=== PATIENT | female | born 1950 | race Two or more races ===

== ENCOUNTER 2018-08-08 12:34 | Emergency (ER) | payer MEDICAID, OTHER ==
[~2018-08-08] VITALS: Ht 160 cm; Wt 59.0 kg
[2018-08-08 12:40] VITALS: BP 160/78
== END 2018-08-08 13:41 | disposition home or self-care (01) ==
LOC: ER 12:36
DX: B37.2 Candidiasis of skin and nail (principal); E11.9 Type 2 diabetes mellitus without complications; I10 Essential (primary) hypertension; Z88.0 Allergy status to penicillin

== ENCOUNTER 2019-01-09 10:05 | Emergency (ER) | payer MEDICARE, MEDICAID ==
[~2019-01-09] VITALS: Ht 157.5 cm; Wt 61.2 kg
[2019-01-09 10:21] VITALS: BP 135/58
[2019-01-09] MEDS ORDERED: IBUPROFEN 800 MG TAB PO ONE (12:15)
== END 2019-01-09 12:29 | disposition home or self-care (01) ==
LOC: ER 10:05
DX: G44.209 Tension-type headache, unspecified, not intractable (principal); E11.9 Type 2 diabetes mellitus without complications; I10 Essential (primary) hypertension
CPT/HCPCS: 70450

== ENCOUNTER 2022-09-27 22:55 | Emergency (ER) | payer MEDICARE, MEDICAID ==
[~2022-09-27] VITALS: Ht 152.4 cm; Wt 61.8 kg
[2022-09-27] MEDS ORDERED: ALPRAZolam 0.5 MG TAB PO ONE (23:45)
[2022-09-27 23:55] LABS: Urine Bacteria FEW /hpf (None Seen); Urine Blood Negative /uL (Negative); Urine Mucus FEW (None Seen); Urine WBC 7 /hpf (0 - 5)
[2022-09-28 00:04] LABS: Basophils # (auto) 0.2 10 ^3/uL (0-0.2); Basophils % (auto) 1.9 % (0.0-2.0); Eosinophils # (auto) 0.3 10 ^3/uL (0-0.8); Eosinophils % (auto) 2.2 % (0.0-7.0); Hematocrit 46.3 % (36.0-46.0); Hemoglobin 15.9 g/dL (12.2-16.2); Lymphocytes # (auto) 3.7 10 ^3/uL (0.4-5.4); Lymphocytes % (auto) 30.8 % (10.0-50.0); Mean Corpuscular Hemoglobin 30.8 pg (28.0-32.0); Mean Corpuscular Hgb Conc. 34.4 g/dL (32.0-36.0); Mean Corpuscular Volume 89.7 fL (80.0-100.0); Monocytes # (auto) 0.7 10 ^3/uL (0-1.3); Monocytes % (auto) 5.9 % (0.0-12.0); Neutrophils % (auto) 59.2 % (37.0-80.0); Nucleated Red Blood Cells % 0.1 %; Red Blood Cells 5.16 10^6/uL (4.0-5.20); Red Cell Distribution Width 14.1 % (11.8-14.3); White Blood Cell 11.9 10^3/uL (4.4-10.8)
[2022-09-28 00:21] LABS: Albumin 3.9 g/dL (3.4-5.0); Potassium 3.8 mmol/L (3.5-5.1)
[2022-09-28 00:25] LABS: Bilirubin, Total 0.3 mg/dL (0.2-1.0); Total Protein 8.8 g/dL (6.4-8.2)
[2022-09-28] MEDS ORDERED: CLON0.1T PO (01:18)
[2022-09-28] MEDS ORDERED: BACDST PO (01:18)
[2022-09-28 01:42] VITALS: BP 145/62
== END 2022-09-28 01:51 | disposition home or self-care (01) ==
LOC: ER 22:55
DX: I10 Essential (primary) hypertension (principal); N39.0 Urinary tract infection, site not specified; E11.9 Type 2 diabetes mellitus without complications; Z88.0 Allergy status to penicillin
CPT/HCPCS: 36415; 80053; 81001; 85025

== ENCOUNTER 2023-01-26 14:49 | Emergency (ER) | payer OTHER, MEDICAID ==
[~2023-01-26] VITALS: Ht 157.5 cm; Wt 61.3 kg
[~2023-01-26 14:49] MED LIST: BACDST PO; CLON0.1T PO
[2023-01-26 15:43] LABS: Basophils # (auto) 0.1 10 ^3/uL (0-0.2); Basophils % (auto) 0.6 % (0.0-2.0); Eosinophils # (auto) 0.3 10 ^3/uL (0-0.8); Eosinophils % (auto) 2.6 % (0.0-7.0); Hematocrit 44.6 % (36.0-46.0); Hemoglobin 15.1 g/dL (12.2-16.2); Lymphocytes # (auto) 3.5 10 ^3/uL (0.4-5.4); Lymphocytes % (auto) 26.6 % (10.0-50.0); Mean Corpuscular Hemoglobin 30.2 pg (28.0-32.0); Mean Corpuscular Hgb Conc. 33.8 g/dL (32.0-36.0); Mean Corpuscular Volume 89.3 fL (80.0-100.0); Monocytes # (auto) 0.7 10 ^3/uL (0-1.3); Monocytes % (auto) 5.6 % (0.0-12.0); Neutrophils # (auto) 8.6 10 ^3/uL (1.6-8.6); Neutrophils % (auto) 64.6 % (37.0-80.0); Nucleated Red Blood Cells % 0.1 %; Red Blood Cells 4.99 10^6/uL (4.0-5.20); Red Cell Distribution Width 14.5 % (11.8-14.3); White Blood Cell 13.2 10^3/uL (4.4-10.8)
[2023-01-26 16:14] LABS: Alanine Aminotransferase 79 U/L (7-40); Albumin 4.3 g/dL (3.2-4.8); Alkaline Phosphatase 90 U/L (46-116); Aspartate Aminotransferase 41 U/L (13-40); BUN/Creatinine Ratio 16.9 (10.0-20.0); Bilirubin, Total 0.2 mg/dL (0.2-1.0); Blood Urea Nitrogen 13 mg/dL (9-23); Calcium 8.9 mg/dL (8.5-10.1); Chloride 104 mmol/L (98-107); Glucose 289 mg/dL (74-106); Potassium 4.6 mmol/L (3.5-5.1); Sodium 136 mmol/L (136-145); Total Protein 7.3 g/dL (5.7-8.2)
[2023-01-26] MEDS ORDERED: KETOROLAC TROMETH 30 MG/ML 1ML VIAL IM ONE (18:45)
[2023-01-26] MEDS ORDERED: METOCLOPRAMIDE HCL 10 MG TAB PO ONE (18:45)
[2023-01-26] MEDS ORDERED: HYDROcodone-ACET 5/325MG TAB PO ONE (18:45)
[2023-01-26] MEDS ORDERED: CYCL-838 PO ×3 (18:55→19:49)
[2023-01-26] MEDS ORDERED: ACET-1304 PO ×3 (18:55→19:49)
[2023-01-26] MEDS ORDERED: METO-281 PO (18:55)
[2023-01-26 19:34] VITALS: BP 136/64; PULSE 81; RESP 18; TEMP 98.5; O2SAT 93
[2023-01-26] MEDS ORDERED: CLON0.1T PO (19:49)
== END 2023-01-26 19:42 | disposition home or self-care (01) ==
LOC: ER 14:49
DX: R51.9 Headache, unspecified (principal); M54.2 Cervicalgia; I10 Essential (primary) hypertension; E11.9 Type 2 diabetes mellitus without complications; Z79.1 Long term (current) use of non-steroidal anti-inflammatories (NSAID); Z79.899 Other long term (current) drug therapy; Z88.0 Allergy status to penicillin
CPT/HCPCS: 36415; 70450; 80053; 85025; 93005; 96372; 99285; J1885; J8597

== ENCOUNTER 2024-09-06 15:05 | Emergency (ER) | payer MEDICAID, MEDICARE, OTHER ==
[~2024-09-06] VITALS: Ht 157.5 cm; Wt 59.9 kg
[~2024-09-06 15:05] MED LIST changes: +ACET-1304 PO; +CYCL-838 PO; +METO-281 PO
[2024-09-06 16:32] VITALS: BP 139/89; PULSE 87; RESP 16; TEMP 98.2; O2SAT 96
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
[2024-09-06] MEDS ORDERED: ACET500T58 PO (17:43)
[2024-09-06] MEDS ORDERED: LIDO5DIS21 TOP (17:43)
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
== END 2024-09-06 17:48 | disposition home or self-care (01) ==
LOC: ER 15:08
DX: M79.18 Myalgia, other site (principal); E11.9 Type 2 diabetes mellitus without complications; I10 Essential (primary) hypertension; S16.1XXA Strain of muscle, fascia and tendon at neck level, initial encounter; M54.2 Cervicalgia; Z88.0 Allergy status to penicillin; V89.2XXA Person injured in unspecified motor-vehicle accident, traffic, initial encounter; Y93.89 Activity, other specified; Y92.410 Unspecified street and highway as the place of occurrence of the external cause; Y99.8 Other external cause status
CPT/HCPCS: 70450; 72125

== ENCOUNTER 2024-09-17 12:45 | Emergency (ER) | payer MEDICARE ==
[~2024-09-17] VITALS: Ht 157.5 cm; Wt 57.4 kg
[~2024-09-17 12:45] MED LIST changes: +ACET500T58 PO; +LIDO5DIS21 TOP
--- NOTE | 2024-09-17 13:03 | ED.PDOC ---
History of present illness HPI Comments Past medical history: DM, HTN Past surgical history: 2 C-sections HPI: Poor Historian. 74-year-old female presents to emergency room for three day history of blood sugar reading at home in the 500s. Patient has associated mild dizziness and nausea and occasional headaches. Patient states compliance with her insulin medications. Blood sugar reads in the 500s here in triage. REVIEW OF SYSTEMS: CONSTITUTIONAL: Denies acute: fever, diaphoresis, chills, HEAD: Denies acute: headache, photophobia Eyes: Denies acute: Double vision, vision loss, eye pain, eye discharge. EARS: Denies acute: tinnitus, hearing loss, ear discharge, ear pain, THROAT: Denies acute: sore throat, swelling, difficulty swallowing , pain with swallowing, change in voice. NECK: Denies acute: neck pain, neck swelling, stiff neck. HEART: Denies acute : chest pain, palpitations, LUNGS: Denies acute: SOB, wheezing, cough, hemoptysis ABDOMEN: Denies acute: abdominal pain, Vomiting, diarrhea, melena , hematemesis, hematochezia SKIN: Denies acute: rash, redness, lesions, itchiness. EXTREMITIES: Denies acute: calf pain, numbness, tingling, weakness, denies pain in extremity. Denies acute: Low back pain. Neuro: Denies acute: focal neurological deficit, motor or sensory focal neurological deficit, tremors, seizure like activity, confusion, change in mental status, loss of bowel or bladder function, cauda equina like symptoms. : Denies acute: dysuria, hematuria, flank pain, increase in urinary frequency. PSYCH: Denies acute: hallucination, suicidal ideation, homicidal ideation. FEMALE: Denies acute: abnormal vaginal bleeding, foul odor, unusual discharge. PHYSICAL EXAM: General: ----minimal----acute distress, awake and alert. Head: normocephalic, atraumatic. Neck: supple, trachea is midline, no swelling. Throat: Normal phonation. Eyes:, no erythema, no purulent discharge, no proptosis, no icterus. Heart: regular rate, regular rhythm, no significant murmur appreciated. Lungs: no apparent respiratory distress, Able to speak in full sentences. No wheezing, no rhonchi, no crackles. No stridors Clear to auscultation bilaterally. Abdomen: non tender to palpation, non distended, soft, no guarding, no rebound, + bowel sounds. Neuro: Awake, Alert, oriented to name, self, situation, follows commands GCS=15. Speech is normal. Skin: no petechia, no purpura, no cyanosis, non-pale, not jaundice. Lower extremities: --no - Pitting edema no deformity, no focal swelling, no calf TTP. Makes eye contact. moves all four extremities. Face: no apparent facial droop. Ambulating in the ED independently. ED COURSE: Chief Complaint: Hyperglycemia Time Seen by MD: 13:00 Primary Care Provider: UNKNOWN History of present illness: Nurses Notes, Medications, Allergies Allergies: Coded Allergies: Penicillins (Verified Allergy, Severe, 08/10/18) Home Meds Active Scripts Nitrofurantoin Monohydrate Mac (Macrobid) 100 Mg Cap, 100 MG PO BID for 7 Days, #14 CAP Prov:AMALIA OROPEZA DO 09/17/24 Acetaminophen (Acetaminophen) 500 Mg Tab, 500 MG PO Q6HP PRN for 10 Days, #40 TAB 0 Refills Prov:CYNDEE COLON NP 09/06/24 Lidocaine (LIDODERM 5% TOPICAL PATCH) 1 Patch Ph, 1 PATCH TOP DAILY for 30 Days, #30 PATCH 0 Refills Prov:CYNDEE COLON NP 09/06/24 Acetaminophen (Tylenol Extra Strength) 500 Mg Tab, 1000 MG PO TID, #20 TAB Prov:XI AVERY MD 01/26/23 Cyclobenzaprine Hcl (CYCLOBENZAPRINE HCL) 7.5 Mg Tab, 7.5 MG PO TID, #14 TAB Prov:XI AVERY MD 01/26/23 Clonidine Hydrochloride (Clonidine Hcl) 0.1 Mg Tab, 1 TAB PO PRN, #20 TAB 0 Refills Prov:XI AVERY MD 01/26/23 Metoclopramide Hcl (Reglan) 10 Mg Tab, 10 MG PO TID, #14 TAB Prov:XI AVERY MD 01/26/23 Sulfamethoxazole W/Trimethopri (Bactrim Ds Tablet) 1 Tab Tb, 1 TAB PO BID for 7 Days, #14 TAB Prov:ELIE REDMAN PAC 09/28/22 Information Source: Patient Past Medical History PAST MEDICAL HISTORY: DM, HTN 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 Was a procedure done?: No Differential Diagnosis (DM) Differential Diagnosis: Dehydration, Diabetic Coma, DKA, Electrolyte Abnormality, Hyperglycemia, Hyperosmolar State, UTI X-Ray, Labs, Meds, VS Vital Signs Date Time Temp Pulse Resp B/P (MAP) Pulse Ox O2 Delivery O2 Flow Rate FiO2 09/17/24 18:35 85 19 98 Room Air* 0 21 09/17/24 18:34 98.0 83 20 144/75 (98) 95 98.0 09/17/24 13:53 79 18 95 Room Air 09/17/24 13:53 97.8 79 18 154/69 (97) 95 97.8 09/17/24 13:32 85 16 95 Room Air 09/17/24 13:32 98.3 85 16 161/82 (108) 95 98.3 09/17/24 12:58 98.7 88 16 148/73 (98) 93 98.7 Lab Test 09/17/24 15:01 09/17/24 14:32 09/17/24 14:02 09/17/24 14:01 Range/Units POC Glucose 386 H 496 *H 70-106 mg/dl Troponin I High Sensitivity 14 </=34 ng/L Blood Gas Specimen Type Arterial Blood Gas Sample Site Right radial Blood Gas Patient Temperature 37.0 Arterial Blood Date Drawn [id number] Arterial Blood pH 7.436 7.350-7.450 Arterial Blood Partial Pressure CO2 35.4 32.0-45.0 mmHg Arterial Blood Partial Pressure O2 73.2 L 83.0-108.0 mmHg Arterial Blood HCO3 23.3 21.0-28.0 mmol/L Arterial Blood Oxygen Saturation 95.2 94.0-98.0 % Arterial Blood Base Excess -0.3 -2.0-3.0 mmol/L Arterial Blood Oxyhemoglobin 94.2 94.0-98.0 % Arterial Blood Carboxyhemoglobin 0.6 0.5-1.5 % Arterial Blood Methemoglobin 0.5 0.0-1.5 % Aj Test Yes Blood Gas Total Hemoglobin 15.80 12.0-16.0 g/dL Blood Gas Modality Room air FiO2 % 21.0 Test 09/17/24 14:00 09/17/24 13:32 09/17/24 12:56 09/17/24 12:54 Range/Units POC Glucose 472 *H 530 *H 70-106 mg/dl White Blood Count 8.8 4.4-10.8 10^3/uL Red Blood Count 5.11 4.0-5.20 10^6/uL Hemoglobin 15.1 12.2-16.2 g/dL Hematocrit 45.3 36.0-46.0 % Mean Corpuscular Volume 88.6 80.0-100.0 fL Mean Corpuscular Hemoglobin 29.5 28.0-32.0 pg Mean Corpuscular Hemoglobin Concent 33.2 32.0-36.0 g/dL Red Cell Distribution Width 14.2 11.8-14.3 % Platelet Count 198 140-450 10^3/uL Mean Platelet Volume 8.5 6.9-10.8 fL Neutrophils (%) (Auto) 75.8 37.0-80.0 % Lymphocytes (%) (Auto) 16.5 10.0-50.0 % Monocytes (%) (Auto) 7.2 0.0-12.0 % Eosinophils (%) (Auto) 0.2 0.0-7.0 % Basophils (%) (Auto) 0.3 0.0-2.0 % Neutrophils # (Auto) 6.7 1.6-8.6 10 ^3/uL Lymphocytes # (Auto) 1.5 0.4-5.4 10 ^3/uL Monocytes # (Auto) 0.6 0-1.3 10 ^3/uL Eosinophils # (Auto) 0 0-0.8 10 ^3/uL Basophils # (Auto) 0 0-0.2 10 ^3/uL Nucleated Red Blood Cells 0.0 % Sodium Level 133 L 136-145 mmol/L Potassium Level 4.2 3.5-5.1 mmol/L Chloride Level 100 98-107 mmol/L Carbon Dioxide Level 22 20-31 mmol/L Anion Gap 11 5-15 Blood Urea Nitrogen 19 9-23 mg/dL Creatinine 0.90 0.550-1.02 mg/dL Glomerular Filtration Rate Calc 68 >90 mL/min BUN/Creatinine Ratio 21.1 H 10.0-20.0 Serum Glucose 556 *H 74-106 mg/dL Lactic Acid Level 1.5 0.4-2.0 mmol/L Calcium Level 9.6 8.7-10.4 mg/dL Magnesium Level 1.8 1.6-2.6 mg/dL Total Bilirubin 0.3 0.2-1.0 mg/dL Aspartate Amino Transferase (AST) 23 13-40 U/L Alanine Aminotransferase (ALT) 48 H 7-40 U/L Alkaline Phosphatase 84 46-116 U/L Troponin I High Sensitivity 12 </=34 ng/L Total Protein 7.8 5.7-8.2 g/dL Albumin 4.4 3.2-4.8 g/dL Beta-Hydroxybutyric Acid 0.339 < 0.4 mmol/L Urine Color Light-yellow Yellow Urine Clarity Clear Clear Urine pH 5.5 5.0-9.0 Urine Specific [place] 1.038 H 1.001-1.035 Urine Protein Negative Negative Urine Ketones 1+ H Negative Urine Blood Negative Negative /uL Urine Nitrite 2+ H Negative Urine Bilirubin Negative Negative Urine Urobilinogen Normal Negative mg/dL Urine Leukocyte Esterase Negative Negative /uL Urine RBC 11 0 - 4 /hpf Urine Microscopic WBC 4 0-5 /HPF Urine Squamous Epithelial Cells Few <5 /hpf Urine Bacteria None seen None Seen /hpf Urine Mucus Few None Seen Urine Glucose 4+ H Normal mg/dL Time of 1ST Reevaluation: 13:00 Reevaluation 1ST: Unchanged Time of 2ND Reevaluation: 00:00 Reevaluation 2ND: Improved Patient Education/Counseling: Diagnosis, Treatment Family Education/Counseling: Diagnosis, Treatment Comments Patient presented with the above HPI.--hyperglycemia----workup was initiated. patient was found with the above mentioned diagnosis. the following medications were ordered: please refer to order lists of meds and tests obtained by myself Dr. Oropeza. Patient ED course and VS have been stabilized. Patient has been reassessed in the ED and remained in a stable condition. Pertinent incidental findings were discussed with the patient and/or family. Patient/family voices understanding and is agreeable with plan. Patient has been observed in the ED adequate length of time to insure improvement/stability. Escalation of care considered: Consideration of escalation to observation or admission Until they Patient was DISCHARGED home in a stable condition. All the reports of any imaging studies that were ordered by myself were reviewed by myself. Departure 1 Departure Time of Disposition: 17:53 Impression: Primary Impression: Hyperglycemia due to diabetes mellitus Additional Impression: UTI (urinary tract infection) Disposition: 01 HOME / SELF CARE / HOMELESS Condition: Stable Additional Instructions: Additional instructions: You MUST follow-up with your primary care/family doctor in 1 to 2 days. If you are unable to see your primary care/family doctor, please return to our emergency room for re-assessment and re-evaluation in 1 to 2 days. Return to the emergency room here in our facility or to the nearest ER [facility] if your symptoms change or worsen. CONSULTATIONS: you MUST Follow-up for consultation as soon as possible with: media planner / buyer for better control of your diabetes. You MUST call the consultants office yourself to make an appointment. You may need to arrange that through your insurance and/or your primary/family doctor. If you are unable to see the education consultant in 1 to 2 days, you must return to our emergency room (or any other ER of your choice) for re-assessment and re- evaluation. Adequate fluid hydration. Follow a strict diabetic diet. Monitoring blood sugar closely at home. e-Prescriptions Nitrofurantoin Monohydrate Mac (Macrobid) 100 Mg Cap 100 MG PO BID for 7 Days, #14 CAP Prov: AMALIA OROPEZA DO 09/17/24 Discharged With: Self Critical Care Note Critical Care Time?: Yes (45 min-critical care time only) I personally scribed for AMALIA OROPEZA DO ([email or web address]) on 09/17/24 at 13:03. Electronically submitted by Manuel Martinez ([email or web address]). AMALIA OROPEZA DO Sep 17, 2024 13:03
[2024-09-17] MEDS: SODIUM CHLORIDE 0.9% 1,000 ML IV ONE (14:03)
[2024-09-17 14:07] LABS: Albumin 4.4 g/dL (3.2-4.8); Alkaline Phosphatase 84 U/L (46-116); Anion Gap 11 (5-15); Aspartate Aminotransferase 23 U/L (13-40); BUN/Creatinine Ratio 21.1 (10.0-20.0); Blood Urea Nitrogen 19 mg/dL (9-23); Calcium 9.6 mg/dL (8.7-10.4); Carbon Dioxide 22 mmol/L (20-31); Chloride 100 mmol/L (98-107); Magnesium 1.8 mg/dL (1.6-2.6); Potassium 4.2 mmol/L (3.5-5.1); Total Protein 7.8 g/dL (5.7-8.2)
[2024-09-17 14:08] LABS: Alanine Aminotransferase 48 U/L (7-40); Basophils # (auto) 0 10 ^3/uL (0-0.2); Basophils % (auto) 0.3 % (0.0-2.0); Bilirubin, Total 0.3 mg/dL (0.2-1.0); Eosinophils # (auto) 0 10 ^3/uL (0-0.8); Eosinophils % (auto) 0.2 % (0.0-7.0); Hematocrit 45.3 % (36.0-46.0); Hemoglobin 15.1 g/dL (12.2-16.2); Lymphocytes # (auto) 1.5 10 ^3/uL (0.4-5.4); Lymphocytes % (auto) 16.5 % (10.0-50.0); Mean Corpuscular Hemoglobin 29.5 pg (28.0-32.0); Mean Corpuscular Hgb Conc. 33.2 g/dL (32.0-36.0); Mean Corpuscular Volume 88.6 fL (80.0-100.0); Monocytes # (auto) 0.6 10 ^3/uL (0-1.3); Monocytes % (auto) 7.2 % (0.0-12.0); Neutrophils # (auto) 6.7 10 ^3/uL (1.6-8.6); Neutrophils % (auto) 75.8 % (37.0-80.0); Platelet Count (auto) 198 10^3/uL (140-450); Red Blood Cells 5.11 10^6/uL (4.0-5.20); Red Cell Distribution Width 14.2 % (11.8-14.3); Sodium 133 mmol/L (136-145); White Blood Cell 8.8 10^3/uL (4.4-10.8)
[2024-09-17 14:10] LABS: Glucose 556 mg/dL (74-106)
[2024-09-17 14:12] LABS: Base Excess -0.3 mmol/L (-2.0-3.0)
[2024-09-17] MEDS: InsuLIN REG 1unit/0.01ml Soln (100units/ml) IV ONE (14:17)
[2024-09-17 14:26] LABS: Urine Bacteria None Seen /hpf (None Seen)
[2024-09-17 14:36] LABS: Urine Blood Negative /uL (Negative); Urine Clarity Clear (Clear); Urine Color Light-Yellow (Yellow); Urine Mucus FEW (None Seen); Urine Protein, UAD Negative (Negative); Urine Specific Gravity 1.038 (1.001-1.035); Urine Squamous Epithelial Cell FEW /hpf (<5); Urine Urobilinogen Normal (Negative); Urine WBC 4 /HPF (0-5); Urine pH 5.5 (5.0-9.0)
[2024-09-17] MEDS ORDERED: NITR-87 PO (17:54)
[2024-09-17 18:34] VITALS: BP 144/75; TEMP 98
[2024-09-17 18:35] VITALS: PULSE 85; RESP 19; O2SAT 98
== END 2024-09-17 18:41 | disposition home or self-care (01) ==
LOC: ER 12:45
DX: E11.65 Type 2 diabetes mellitus with hyperglycemia (principal); N39.0 Urinary tract infection, site not specified; I10 Essential (primary) hypertension; Z88.0 Allergy status to penicillin
CPT/HCPCS: 36415; 36600; 80053; 81001; 82010; 82805; 82947; 83605; 83735; 84484; 85025; 96361; 96374; 99283; J1815; J7030; 82962

== ENCOUNTER 2024-11-19 14:57 | Inpatient (IN) | payer MEDICARE, MEDICAID ==
[~2024-11-19] VITALS: Ht 144.8 cm; Wt 62.3 kg
[~2024-11-19 14:57] MED LIST changes: +NITR-87 PO
--- NOTE | 2024-11-19 15:17 | ED.PDOC ---
History of Present Illness HPI Comments 74-year-old female came to the ER stating that she has been having epigastric pain which started 3 hours ago. She states that she we will having nausea vomiting for the past 3 hours yellow colored liquid. History of hypertension diabetes. States that she feels dizzy when walking. States that she has been well prior to this morning. Denies any other symptoms. Time Seen by MD: 15:05 Primary Care Provider: unknown Reviewed Notes: Nurses Notes, Medications, Allergies Allergies: Coded Allergies: Penicillins (Verified Allergy, Severe, 08/10/18) Home Meds Active Scripts Nitrofurantoin Monohydrate Mac (Macrobid) 100 Mg Cap, 100 MG PO BID for 7 Days, #14 CAP Prov:AMALIA OROPEZA DO 09/17/24 Acetaminophen (Acetaminophen) 500 Mg Tab, 500 MG PO Q6HP PRN for 10 Days, #40 TAB 0 Refills Prov:CYNDEE COLON NP 09/06/24 Lidocaine (LIDODERM 5% TOPICAL PATCH) 1 Patch Ph, 1 PATCH TOP DAILY for 30 Days, #30 PATCH 0 Refills Prov:CYNDEE COLON [employer] DEVELOPER 09/06/24 Acetaminophen (Tylenol Extra Strength) 500 Mg Tab, 1000 MG PO TID, #20 TAB Prov:XI AVERY MD 01/26/23 Cyclobenzaprine Hcl (CYCLOBENZAPRINE HCL) 7.5 Mg Tab, 7.5 MG PO TID, #14 TAB Prov:XI AVERY MD 01/26/23 Clonidine Hydrochloride (Clonidine Hcl) 0.1 Mg Tab, 1 TAB PO PRN, #20 TAB 0 Refills Prov:XI AVERY MD 01/26/23 Metoclopramide Hcl (Reglan) 10 Mg Tab, 10 MG PO TID, #14 TAB Prov:XI AVERY MD 01/26/23 Sulfamethoxazole W/Trimethopri (Bactrim Ds Tablet) 1 Tab Tb, 1 TAB PO BID for 7 Days, #14 TAB Prov:ELIE REDMAN PAC 09/28/22 Information Source: Patient Mode of Arrival: Ambulatory Severity: Moderate Timing: Hours Duration: Since onset Past Medical History PAST MEDICAL HISTORY: DM, HTN Surgical History: [employer]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 Family History Family History: Unknown Social History Smoker: Non-Smoker Alcohol: Denies ETOH Use Drugs: Denies Drug Use Lives In: Home Constitutional: denies: chills, diaphoresis, fatigue, fever, malaise, sweats, weakness, others EENTM: denies: blurred vision, double vision, ear bleeding, ear discharge, ear drainage, ear pain, ear ringing, eye pain, eye redness, hearing loss, mouth pain, mouth swelling, nasal discharge, nose bleeding, nose congestion, nose pain, photophobia, tearing, throat pain, throat swelling, voice changes, others Respiratory: denies: cough, hemoptysis, orthopnea, SOB at rest, shortness of breath, SOB with excertion, stridor, wheezing, others Cardiovascular: denies: chest pain, dizzy spells, diaphoresis, Dyspnea on exertion, edema, irregular heart beat, left arm pain, lightheadedness, palpitations, PND, syncope, others Gastrointestinal: reports: abdominal pain, nausea, vomiting; denies: abdomen distended, blood streaked bowels, constipated, diarrhea, dysphagia, difficulty swallowing, hematemesis, melena, poor appetite, poor fluid intake, rectal bleeding, rectal pain, others Genitourinary: denies: abnormal vagina bleeding, burning, dyspareunia, dysuria, flank pain, frequency, hematuria, incontinence, pain, , vagina discharge, urgency, others Neurological: denies: dizziness, fainting, headache, left sided numbness, left sided weakness, numbness, paresthesia, pre-existing deficit, right sided numbness, right sided weakness, seizure, speech problems, tingling, tremors, weakness, others Musculoskeletal: denies: back pain, gout, joint pain, joint swelling, muscle pain, muscle stiffness, neck pain, others Integumetry: denies: bruises, change in color, change in hair/nails, dryness, laceration, lesions, lumps, rash, wounds, others Allergic/Immunocompromised: denies: Difficulty Healing, Frequent Infections, Hives, Itching, others Hematologic/Lymphatic: denies: anemia, blood clots, easy bleeding, easy bruising, swollen glands, others Endocrine: denies: excessive hunger, excessive sweating, excessive thirst, excessive urination, flushing, intolerance to cold, intolerance to heat, unexplained weight gain, unexplained weight loss, others Psychiatric: denies: anxiety, bipolar disorder, depression, hopeless, panic disorder, schizophrenia, sleepless, suicidal, others Physical Exam General Appearance: Moderate Distress HEENT: Normal ENT Inspection, Pharynx Normal, TMs Normal Neck: Full Range of Motion, Non-Tender, Normal, Normal Inspection Respiratory: Chest Non-Tender, Lungs Clear, No Accessory Muscle Use, No Respiratory Distress, Normal Breath Sounds Cardiovascular: No Edema, No JVD, No Murmur, No Gallop, Normal Peripheral Pulses, Regular Rate/Rhythm Breast Exam: Deferred Gastrointestinal: No Organomegaly, Non Tender, No Pulsatile Mass, Normal Bowel Sounds, Soft Genitalia: Deferred Pelvic: Deferred Rectal: Deferred Extremities: No calf tenderness, Normal capillary refill, Normal inspection, Normal range of motion, Non-tender, No pedal edema Musculoskeletal : Apperance: Normal Neurologic: Alert, fruit pitter II-XII nml as Tested, No Motor Deficits, Normal Affect, Normal Mood, No Sensory Deficits Cerebellar Function: Normal Reflexes: Normal Skin: Dry, Normal Color, Warm Peripheral Pulses: 3+ Radial (R), 3+ Radial (L) Lymphatic: No Adenopathy Was a procedure done? Was a procedure done?: No Differential Dx Considerations may include: Gastroenteritis Electrolyte imbalance X-Ray, Labs, Meds, VS Vital Signs Date Time Temp Pulse Resp B/P (MAP) Pulse Ox O2 Delivery O2 Flow Rate FiO2 11/19/24 15:14 97.3 102 18 147/84 (105) 96 97.3 Lab Test 11/19/24 15:28 11/19/24 15:14 11/19/24 15:13 Range/Units White Blood Count 16.1 H 4.4-10.8 10^3/uL Red Blood Count 5.40 H 4.0-5.20 10^6/uL Hemoglobin 16.0 12.2-16.2 g/dL Hematocrit 47.9 H 36.0-46.0 % Mean Corpuscular Volume 88.7 80.0-100.0 fL Mean Corpuscular Hemoglobin 29.6 28.0-32.0 pg Mean Corpuscular Hemoglobin Concent 33.3 32.0-36.0 g/dL Red Cell Distribution Width 13.9 11.8-14.3 % Platelet Count 253 140-450 10^3/uL Mean Platelet Volume 8.4 6.9-10.8 fL Neutrophils (%) (Auto) 85.3 H 37.0-80.0 % Lymphocytes (%) (Auto) 7.7 L 10.0-50.0 % Monocytes (%) (Auto) 6.0 0.0-12.0 % Eosinophils (%) (Auto) 0.7 0.0-7.0 % Basophils (%) (Auto) 0.3 0.0-2.0 % Neutrophils # (Auto) 13.7 H 1.6-8.6 10 ^3/uL Lymphocytes # (Auto) 1.2 0.4-5.4 10 ^3/uL Monocytes # (Auto) 1.0 0-1.3 10 ^3/uL Eosinophils # (Auto) 0.1 0-0.8 10 ^3/uL Basophils # (Auto) 0.1 0-0.2 10 ^3/uL Nucleated Red Blood Cells 0.1 % Sodium Level 137 136-145 mmol/L Potassium Level 3.8 3.5-5.1 mmol/L Chloride Level 102 98-107 mmol/L Carbon Dioxide Level 24 20-31 mmol/L Anion Gap 11 5-15 Blood Urea Nitrogen 16 9-23 mg/dL Creatinine 1.06 H 0.550-1.02 mg/dL Glomerular Filtration Rate Calc 56 >90 mL/min BUN/Creatinine Ratio 15.1 10.0-20.0 Serum Glucose 396 H 74-106 mg/dL Calcium Level 10.2 8.7-10.4 mg/dL Urine Color Light-yellow Yellow Urine Clarity Clear Clear Urine pH 5.0 5.0-9.0 Urine Specific [place] 1.030 1.001-1.035 Urine Protein Trace H Negative Urine Ketones Trace Negative Urine Blood Negative Negative /uL Urine Nitrite Negative Negative Urine Bilirubin Negative Negative Urine Urobilinogen Normal Negative mg/dL Urine Leukocyte Esterase Trace Negative /uL Urine RBC 3 0 - 4 /hpf Urine Microscopic WBC 30 H 0-5 /HPF Urine Squamous Epithelial Cells Few <5 /hpf Urine Bacteria None seen None Seen /hpf Urine Yeast (Budding) Occasional None Seen /hpf Urine Glucose 4+ H Normal mg/dL POC Glucose 390 H 70-106 mg/dl Patient alert. Complaining of nausea vomiting. Vitals stable. Answering questions. WBC elevated. Blood sugar elevated. Establish intravenous access. Was given fluids. Was given Levaquin. Was given Flagyl. Blood culture. Lactic acid. Explained to the patient. Continue monitoring. CT scan of the abdomen does show constipation. Time of 1ST Reevaluation: 15:13 Reevaluation 1ST: Unchanged Patient Education/Counseling: Diagnosis, Treatment, Prognosis, Need For Follow Up Family Education/Counseling: No Family Present SEPSIS Sepsis Screen Physician Orders Ct Ab Pel Wo Con-No Oral Or Iv (11/19/24 15:22) Vital Signs Date Time Temp Pulse Resp B/P (MAP) Pulse Ox O2 Delivery O2 Flow Rate FiO2 11/19/24 15:14 97.3 102 18 147/84 (105) 96 97.3 Laboratory Tests Test 11/19/24 15:28 White Blood Count 16.1 10^3/uL (4.4-10.8) H Departure 1 Departure Time of Disposition: 17:04 Impression: Primary Impression: Uncontrolled diabetes mellitus Qualified Codes: E13.65 - Other specified diabetes mellitus with hyperglycemia Additional Impressions: Gastroenteritis UTI (urinary tract infection) Qualified Codes: N30.00 - Acute cystitis without hematuria Disposition: ADMITTED INPATIENT Admit to: Med Surg Condition: Guarded Critical Care Note Critical Care Time?: No Stability Stability form required: No Heart Score Heart Score: Heart Score Response (Comments) Value History N/A 0 EKG N/A 0 Age N/A 0 Risk Factors N/A 0 Troponin N/A 0 Total 0 RAFITA PAULA MD Nov 19, 2024 15:17
[2024-11-19 15:53] LABS: Chloride 102 mmol/L (98-107); Potassium 3.8 mmol/L (3.5-5.1); Sodium 137 mmol/L (136-145)
[2024-11-19 15:54] LABS: Anion Gap 11 (5-15); Carbon Dioxide 24 mmol/L (20-31)
[2024-11-19 15:55] LABS: Calcium 10.2 mg/dL (8.7-10.4)
[2024-11-19 15:59] LABS: BUN/Creatinine Ratio 15.1 (10.0-20.0); Blood Urea Nitrogen 16 mg/dL (9-23); Glucose 396 mg/dL (74-106)
--- NOTE | 2024-11-19 16:11 | DVH ---
EXAM: CT Abdomen and Pelvis Without Intravenous Contrast CLINICAL INDICATION: enteritis TECHNIQUE: Axial computed tomography images of the abdomen and pelvis without intravenous contrast. This CT exam was performed using one or more of the following dose reduction techniques: automated exposure control, adjustment of the mA and/or kV according to patient size, and/or use of iterative r econstruction technique. CONTRAST: RADIATION DOSE: CTDIvol = 6.48 mGy, DLP = 354.84 mGy-cm COMPARISON: No relevant prior studies available. FINDINGS: LUNG BASES: Unremarkable. No mass. No consolidation. ABDOMEN: LIVER: Hepatomegaly with fatty infiltration. GALLBLADDER AND BILE DUCTS: Unremarkable. No calcified stones. No ductal dilation. PANCREAS: Unremarkable. No ductal dilation. SPLEEN: Unremarkable. No splenomegaly. ADRENALS: Unremarkable. No mass. KIDNEYS AND URETERS: Unremarkable. No obstructing stones. No hydronephrosis. STOMACH AND BOWEL: Fecal retention in the colon consistent with constipation. Colonic diverticulos is without acute diverticulitis. No obstruction. PELVIS: APPENDIX: No findings to suggest acute appendicitis. BLADDER: Unremarkable. No stones. REPRODUCTIVE: Unremarkable as visualized. ABDOMEN and PELVIS: INTRAPERITONEAL SPACE: Unremarkable. No free air. No significant fluid collection. BONES/JOINTS: No acute fracture. No dislocation. SOFT TISSUES: Unremarkable. VASCULATURE: Scattered calcified atherosclerotic disease of aorta. No abdominal aortic aneurysm. LYMPH NODES: Unremarkable. No enlarged lymph nodes. OTHER FINDINGS: Comparison None. . IMPRESSION: 1. Hepatomegaly with fatty infiltration. 2. Fecal retention in the colon consistent with constipation. 3. Colonic diverticulosis without acute diverticulitis. HS:Y
[2024-11-19 16:21] LABS: Hematocrit 47.9 % (36.0-46.0); Hemoglobin 16.0 g/dL (12.2-16.2); Mean Corpuscular Hemoglobin 29.6 pg (28.0-32.0); Mean Corpuscular Volume 88.7 fL (80.0-100.0); Nucleated Red Blood Cells % 0.1 %
[2024-11-19 16:49] LABS: Urine Budding Yeast OCCASIONAL /hpf (None Seen); Urine Protein, UAD TRACE (Negative)
[2024-11-19] MEDS: SODIUM CHLORIDE 0.9% 1,000 ML IV ONE ×2 (17:15)
[2024-11-19 18:47] LABS: Lactic Acid w/Reflex 2.8 mmol/L (0.4-2.0)
[2024-11-19] MEDS: InsuLIN REG 1unit/0.01ml Soln (100units/ml) IV ONE (19:57)
[2024-11-19 21:25] VITALS: PULSE 76; RESP 16; O2SAT 98
[2024-11-19] MEDS ORDERED: MORPHINE SULFATE INJ 2 MG/ml SYRG IV PRN ×2 (22:45)
[2024-11-19] MEDS ORDERED: NITROGLYCERIN 0.4 MG SL TAB SL PRN (22:45)
[2024-11-19] MEDS: SODIUM CHLORIDE 0.9% 1,000 ML IV SCH (22:45)
[2024-11-19] MEDS ORDERED: ONDANSETRON HCL 4 MG/2 ML VIAL IV PRN (22:45)
[2024-11-19] MEDS ORDERED: CYCLOBENZAPRINE HCL 10 MG TAB PO PRN (22:45)
--- NOTE | 2024-11-19 23:03 | DVHHPRES ---
History of Present Illness Resident Creating Document: MINOR POP RESIDENT History of Present Illness Ms. Sophy Butcher, a 74-year-old female with past medical history diabetes and came to the ER stating that she has been having epigastric pain which started 3 hours ago. She states that she we will having nausea vomiting for the past 3 hours yellow colored liquid. History of hypertension diabetes. States that she feels dizzy when walking. States that she has been well prior to this morning. Denies any other symptoms possible gastroenteritis, viral versus parasitic versus bacterial, stool panel sent. 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 Family History: None Smoke: No ALCOHOL: none Drugs: None Lives: with Family Domestic Violence: Neg Review of Systems Constitutional: Yes: Chills, Malaise; No: Fever, Sweats, Weakness, Other Eyes: No: Pain, Vision change, Conjunctivae inflammation, Eyelid inflammation, Other, Redness ENT: No: Ear pain, Ear discharge, Nose pain, Nose discharge, Nose congestion, Mouth pain, Mouth swelling, Throat pain, Throat swelling, Other Respiratory: No: Cough, Dry, Shortness of breath, SOB with excertion, Wheezing, Hemoptysis, Pleuritic Pain, Sputum, Wheezing, Other Cardiovascular: No: Chest Pain, Palpitations, Orthopnea, Paroxysmal Noc. Dyspnea, Edema, Lt Headedness, Other Gastrointestinal: Abdominal Pain; No: Nausea, Vomiting, Diarrhea, Constipation, Melena, Hematochezia, Other Genitourinary: Dysuria, Frequency, Incontinence; No Hematuria, No Retention, No Other Musculoskeletal: No: other, neck pain, shoulder pain, arm pain, back pain, hand pain, leg pain, foot pain Skin: No: Rash, Lesions, Jaundice, Bruising, Other Neurological: No: Weakness, Numbness, Incoordination, Change in speech, Confusion, Seizures, Other Allergies: Coded Allergies: Penicillins (Verified Allergy, Severe, 08/10/18) Medications Current Medications Medications Dose Ordered Sig/Turner Route Start Time Stop Time Status Last Admin Dose Admin Sodium Chloride 1,000 ml @ 120 mls/hr Q8H20M IV 11/19/24 22:45 Ondansetron HCl 4 mg Q4HP PRN IV 11/19/24 22:45 Morphine Sulfate 2 mg Q4HPRN PRN IV 11/19/24 22:45 Nitroglycerin 0.4 mg Q5MINP PRN SL 11/19/24 22:45 Morphine Sulfate 2 mg Q30M PRN IV 11/19/24 22:45 Pantoprazole Sodium 40 mg DAILY IV 11/19/24 22:45 Cyclobenzaprine HCl 5 mg TIDPRN PRN PO 11/19/24 22:45 Ciprofloxacin 200 ml @ 200 mls/hr DAILY IV 11/20/24 06:00 Metronidazole 100 ml @ 100 mls/hr Q8HP IV 11/20/24 06:00 Exam Vital Signs Vital Signs Date Time Temp Pulse Resp B/P (MAP) Pulse Ox O2 Delivery O2 Flow Rate FiO2 11/19/24 21:25 76 16 98 Room Air* 0 21 11/19/24 20:00 98.1 129/62 (84) 98.1 General Appearance: Alert, Oriented X3, Cooperative, mild distress HEENT: Atraumatic, PERRLA, EOMI, Mucous membr. moist/pink Respiratory: Clear to auscultation, Normal air movement Cardiovascular: Regular rate, Normal S1, Normal S2, No murmurs, Gallops Abdominal: Normal bowel sounds, Soft, Other (suprapubic tenderness. ) Extremities: No clubbing, No cyanosis, No edema, Normal pulses, No tenderness/swelling Skin: No rashes, No breakdown, No significant lesion Neuro: Normal gait, Normal speech, Strength at 5/5 X4 ext, Normal tone, Sensation intact, Cranial nerves 3-12 NL, Reflexes 2+, Other (no focal neurodeficit ) Psych/Mental Status: Mental status NL, Mood NL Labs/Xrays Labs Test 11/19/24 20:18 11/19/24 19:51 11/19/24 15:28 11/19/24 15:14 Range/Units Lactic Acid Level 2.4 *H 0.4-2.0 mmol/L POC Glucose 336 H 70-106 mg/dl White Blood Count 16.1 H 4.4-10.8 10^3/uL Red Blood Count 5.40 H 4.0-5.20 10^6/uL Hemoglobin 16.0 12.2-16.2 g/dL Hematocrit 47.9 H 36.0-46.0 % Mean Corpuscular Volume 88.7 80.0-100.0 fL Mean Corpuscular Hemoglobin 29.6 28.0-32.0 pg Mean Corpuscular Hemoglobin Concent 33.3 32.0-36.0 g/dL Red Cell Distribution Width 13.9 11.8-14.3 % Platelet Count 253 140-450 10^3/uL Mean Platelet Volume 8.4 6.9-10.8 fL Neutrophils (%) (Auto) 85.3 H 37.0-80.0 % Lymphocytes (%) (Auto) 7.7 L 10.0-50.0 % Monocytes (%) (Auto) 6.0 0.0-12.0 % Eosinophils (%) (Auto) 0.7 0.0-7.0 % Basophils (%) (Auto) 0.3 0.0-2.0 % Neutrophils # (Auto) 13.7 H 1.6-8.6 10 ^3/uL Lymphocytes # (Auto) 1.2 0.4-5.4 10 ^3/uL Monocytes # (Auto) 1.0 0-1.3 10 ^3/uL Eosinophils # (Auto) 0.1 0-0.8 10 ^3/uL Basophils # (Auto) 0.1 0-0.2 10 ^3/uL Nucleated Red Blood Cells 0.1 % Sodium Level 137 136-145 mmol/L Potassium Level 3.8 3.5-5.1 mmol/L Chloride Level 102 98-107 mmol/L Carbon Dioxide Level 24 20-31 mmol/L Anion Gap 11 5-15 Blood Urea Nitrogen 16 9-23 mg/dL Creatinine 1.06 H 0.550-1.02 mg/dL Glomerular Filtration Rate Calc 56 >90 mL/min BUN/Creatinine Ratio 15.1 10.0-20.0 Serum Glucose 396 H 74-106 mg/dL Calcium Level 10.2 8.7-10.4 mg/dL Urine Color Light-yellow Yellow Urine Clarity Clear Clear Urine pH 5.0 5.0-9.0 Urine Specific [place] 1.030 1.001-1.035 Urine Protein Trace H Negative Urine Ketones Trace Negative Urine Blood Negative Negative /uL Urine Nitrite Negative Negative Urine Bilirubin Negative Negative Urine Urobilinogen Normal Negative mg/dL Urine Leukocyte Esterase Trace Negative /uL Urine RBC 3 0 - 4 /hpf Urine Microscopic WBC 30 H 0-5 /HPF Urine Squamous Epithelial Cells Few <5 /hpf Urine Bacteria None seen None Seen /hpf Urine Yeast (Budding) Occasional None Seen /hpf Urine Glucose 4+ H Normal mg/dL Assessment/Plan Assessment/Plan #Epigastric pain: Complete the workup with further labs, no surgical abdomen, CT abdomen pelvis unremarkable, we will cover broadly for intra-abdominal pathologies : We will cover with ciprofloxacin Flagyl for Gram-negative and anaerobes. #Severe sepsis, with WBC 16.1, neutrophilic leukocytosis with lactic acidosis 2.8, trending down, No echo on file: Check echo tomorrow to admit the risk of fluid overload, check BNP. #Possible UTI: UA indicative , sepsis dose fluid resuscitation, gentle hydration to continue, interval repeat lactate and CBC. #SABIHA due to VMN: Avoid nephrotoxins, a gentle hydration continue #Underlying CKD stage IV /III B #Hepatomegaly with fatty infiltration: Check hepatic panel, abdominal examination unremarkable check INR/PT #Chronic constipation, as needed laxatives. #Colonic diverticulosis without acute diverticulitis #Known diabetic: elevated BG in 300s, we will check for HbA1c, not on file in- hospital blood glucose lenient 140-180 as per NICE sugar trial #Previous history of UTI: Received Bactrim, nitrofurantoin previously, IV abx and culture. #Essential Hypertension: As needed clonidine 0.1 labile blood pressure, ideal blood pressure should be 130/90 or below, we will start with a 5 amlodipine In- hospital. We will try to avoid clonidine. #Age-related osteoarthritis: local analgesics as needed acetaminophen, ruled out hepatic dysfunction #Chronic back pain: Likely due to above: As needed Tylenol, check hepatic function, careful use of cyclobenzaprine 7.5 p.o. t.i.d. given meeting beers criteria. #Known allergy to penicillin's: Strictly avoid for now #History of uncomplicated #GI prophylaxis/ diet: IV ppi, NPO for now PCP: Dr. Quiroz Specialist Relevant To Admission: N/A Case discussed with Dr. Wright. Code Status: Full Code. Goals of care and care plan discussion needed total 33 minutes bedside. Plan discussed with: Patient My Orders Orders - MINOR POP RESIDENT Procedure Category Date Status Time Admit ADMIT 11/19/24 Transmitted 22:31 Allergies EUN 11/19/24 In Process 22:31 Code Status CODE 11/19/24 Transmitted 22:31 Sodium Chloride 0.9% PHA 11/19/24 In Process 22:45 Oxygen Per Hour RT 11/19/24 Transmitted 22:31 Ondansetron Hcl PHA 11/19/24 In Process (Zofran) 22:45 Fall Risk Precautions EUN 11/19/[address] 22:31 Complete Blood Count LAB 11/20/24 Verified 04:00 Comprehensive LAB 11/20/24 Verified Metabolic Panel 04:00 Npo (Nothing By DIET 11/20/24 Transmitted Mouth) Diet Breakfast Pt Request For Service PT 11/19/24 Logged 22:31 Echo 2d Mode Cardiac US 11/19/24 Logged DOP 22:31 Condition: Serious EUN 11/19/24 In Process 22:31 Morphine Sulfate PHA 11/19/24 In Process Injection 22:45 Sequential EUN 11/19/24 In Process Compression Device Nitroglycerin PHA 11/19/24 In Process Sublingual (Ntrostat 22:45 Morphine Sulfate PHA 11/19/24 In Process Injection 22:45 Oxygen By Nasal RT 11/19/24 Transmitted Cannula 22:31 Stat Ekg For Chest EUN 11/19/24 In Process Pain 22:31 Notify Of Changes EUN 11/19/24 In Process From Base 22:31 Map And Chart Mounter For EUN 11/19/24 In Process 24 Hours 22:31 Emergency Dysrhythmia EUN 11/19/24 In Process Protocol 22:31 Rhythm Strips Once EUN 11/19/24 In Process Every Shift 22:31 Urine Bacterial BUSTER 11/19/24 In Process Culture 22:39 Hepatic Panel LAB 11/19/24 In Process 22:39 Pantoprazole PHA 11/19/24 In Process (Protonix) 22:45 Cyclobenzaprine PHA 11/19/24 In Process Tablet (Flexeril 22:45 Ciprofloxacin PHA 11/20/24 In Process 400mg/200ml (Cipro Iv) 06:00 Metronidazole PHA 11/20/24 In Process 500mg/100ml (Flagyl 06:00 Clostridium Difficile BUSTER 11/19/24 Logged Toxin 22:48 Ova & Parasite Exam BUSTER 11/19/24 Logged 22:48 Stool Occult Blood LAB 11/19/24 Logged 22:48 Gram Stain BUSTER 11/19/24 Logged 22:48 Stool Wbc LAB 11/19/24 Logged 22:48 Stool Bacterial BUSTER 11/19/24 Logged Culture 22:48 Prothrombin Time W/ LAB 11/19/24 Logged INR 22:55 B-Type Natriuretic LAB 11/19/24 Logged Peptide 22:55 Date of Service: Nov 19, 2024 Billing Provider: SREEDHAR WRIGHT MD Common Visit Codes: 60308-PTTMITP INP/OBS CARE (HIGH) Secondary Visit Codes: 60570-VIGMMEEC CARE PLAN 30 MINUTES MINOR POP RESIDENT Nov 19, 2024 23:03
[2024-11-19 23:09] LABS: Alanine Aminotransferase 31.0 U/L (7-40); Albumin 4.8 g/dL (3.2-4.8); Alkaline Phosphatase 102.0 U/L (46-116); Bilirubin, Direct 0.1 mg/dL (<0.3); Bilirubin, Total 0.5 mg/dL (0.2-1.0); Total Protein 8.6 g/dL (5.7-8.2)
[2024-11-19 23:37] LABS: INR 1.03 (0.9-1.15); Prothrombin Time 10.9 sec (9.3-11.8)
[2024-11-19] MEDS: PANTOPRAZOLE 40 MG/10 ML VIAL INJ IV SCH (23:56)
[2024-11-20] MEDS ORDERED: DEXTROSE (50%) 50ML SYRG IV PRN ×2 (04:30→08:15)
[2024-11-20 06:05] LABS: Hematocrit 39.8 % (36.0-46.0); Hemoglobin 13.6 g/dL (12.2-16.2); Mean Corpuscular Hemoglobin 30.1 pg (28.0-32.0); Mean Corpuscular Volume 88.0 fL (80.0-100.0); Nucleated Red Blood Cells % 0.0 %
[2024-11-20 06:21] LABS: Alanine Aminotransferase 19 U/L (7-40); Albumin 3.6 g/dL (3.2-4.8); Alkaline Phosphatase 65 U/L (46-116); Anion Gap 9 (5-15); BUN/Creatinine Ratio 16.2 (10.0-20.0); Blood Urea Nitrogen 11 mg/dL (9-23); Calcium 8.7 mg/dL (8.7-10.4); Carbon Dioxide 25 mmol/L (20-31); Potassium 3.8 mmol/L (3.5-5.1); Sodium 143 mmol/L (136-145); Total Protein 6.4 g/dL (5.7-8.2)
[2024-11-20 06:22] LABS: Bilirubin, Total 0.4 mg/dL (0.2-1.0)
[2024-11-20 06:25] LABS: Chloride 109 mmol/L (98-107); Glucose 173 mg/dL (74-106)
[2024-11-20] MEDS: CIPROFLOXACIN 400MG/200ML 200 ML IV SCH (06:26)
[2024-11-20] MEDS: ACCU-CHEK COMFORT CURVE STRIP VI SCH ×2 (06:28→12:03)
[2024-11-20] MEDS: InsuLIN REG 1unit/0.01ml Soln (100units/ml) SC SCH ×2 (06:59→12:04)
--- NOTE | 2024-11-20 13:53 | DVHPN2 ---
Reviewed: Care Plan, H&P, Labs, Medications, Previous Orders, Radiology Changes from previous H/P or p: No Changes Eyes: No Pain, No Vision change, No Conjunctivae inflammation, No Eyelid inflammation, No Other, No Redness ENT: No Ear pain, No Ear discharge, No Nose pain, No Nose discharge, No Nose congestion, No Mouth pain, No Mouth swelling, No Throat pain, No Throat swelling, No Other Cardiovascular: No Chest Pain, No Palpitations, No Orthopnea, No Paroxysmal Noc. Dyspnea, No Edema, No Lt Headedness, No Other Respiratory: No Cough, No Dry, No Shortness of breath, No SOB with excertion, No Wheezing, No Hemoptysis, No Pleuritic Pain, No Sputum, No Other Gastrointestinal: No Nausea, No Vomiting; Abdominal Pain; No Diarrhea, No Constipation, No Melena, No Hematochezia, No Other Genitourinary: Dysuria, Frequency, Incontinence; No Hematuria, No Retention, No Other Musculoskeletal: No other, No neck pain, No shoulder pain, No arm pain, No back pain, No hand pain, No leg pain, No foot pain Skin: No Rash, No Lesions, No Jaundice, No Bruising, No Other Objective Vitals Vital Signs Date Time Temp Pulse Resp B/P (MAP) Pulse Ox O2 Delivery O2 Flow Rate FiO2 11/20/24 12:00 68 11/20/24 10:00 18 122/64 (83) 97 11/19/24 21:25 Room Air* 0 21 21 11/19/24 20:00 98.1 98.1 Medications Current Medications Medications Dose Ordered Sig/Turner Route Start Time Stop Time Status Last Admin Dose Admin Sodium Chloride 1,000 ml @ 120 mls/hr Q8H20M IV 11/19/24 22:45 11/20/24 07:05 120 MLS/HR Ondansetron HCl 4 mg Q4HP PRN IV 11/19/24 22:45 Morphine Sulfate 2 mg Q4HPRN PRN IV 11/19/24 22:45 Nitroglycerin 0.4 mg Q5MINP PRN SL 11/19/24 22:45 Morphine Sulfate 2 mg Q30M PRN IV 11/19/24 22:45 Pantoprazole Sodium 40 mg DAILY IV 11/19/24 22:45 11/20/24 10:27 40 MG Cyclobenzaprine HCl 5 mg TIDPRN PRN PO 11/19/24 22:45 Ciprofloxacin 200 ml @ 200 mls/hr DAILY IV 11/20/24 06:00 11/20/24 10:25 200 MLS/HR Metronidazole 100 ml @ 100 mls/hr Q8HP IV 11/20/24 06:00 11/20/24 05:31 100 MLS/HR Diagnostic Test (Pha) 1 strip Q6HR 11/20/24 12:00 11/20/24 12:03 1 STRIP Insulin Human Regular Q6HR SC 11/20/24 12:00 11/20/24 12:04 6 UNITS Dextrose 50 ml UD PRN IV 11/20/24 08:15 Laboratory Results Laboratory Tests 11/20/24 05:19 Chemistry Test 11/19/24 15:28 11/20/24 05:19 Albumin 4.8 g/dL (3.2-4.8) 3.6 g/dL (3.2-4.8) Calcium Level 10.2 mg/dL (8.7-10.4) 8.7 mg/dL (8.7-10.4) Total Protein 8.6 g/dL (5.7-8.2) H 6.4 g/dL (5.7-8.2) Coagulation Test 11/19/24 23:09 Prothrombin Time 10.9 sec (9.3-11.8) Prothrombin Time INR 1.03 (0.9-1.15) Cardiac Markers Test 11/19/24 23:09 B-Type Natriuretic Peptide 34.43 pg/mL (0-100) LFT Test 11/19/24 15:28 11/20/24 05:19 Alanine Aminotransferase (ALT) 31 U/L (7-40) 19 U/L (7-40) Alkaline Phosphatase 102 U/L (46-116) 65 U/L (46-116) Aspartate Amino Transferase (AST) 18 U/L (<34) 11 U/L (<34) Direct Bilirubin 0.1 mg/dL (<0.3) Total Bilirubin 0.5 mg/dL (0.2-1.0) 0.4 mg/dL (0.2-1.0) HgA1c, TSH Test 11/20/24 05:19 Hemoglobin A1c 13.7 % A1C (<5.7) H Urinalysis Test 11/19/24 15:14 Urine Color Light-yellow (Yellow) Urine Clarity Clear (Clear) Urine pH 5.0 (5.0-9.0) Urine Specific [place] 1.030 (1.001-1.035) Urine Protein Trace (Negative) H Urine Ketones Trace (Negative) Urine Blood Negative /uL (Negative) Urine Nitrite Negative (Negative) Urine Bilirubin Negative (Negative) Urine Urobilinogen Normal mg/dL (Negative) Urine Leukocyte Esterase Trace /uL (Negative) Urine RBC 3 /hpf (0 - 4) Urine Microscopic WBC 30 /HPF (0-5) H Urine Squamous Epithelial Cells Few /hpf (<5) Urine Bacteria None seen /hpf (None Seen) Urine Yeast (Budding) Occasional /hpf (None Urine Glucose 4+ mg/dL (Normal) H Microbiology Microbiology Date/Time Source Procedure Growth Status 11/19/24 22:48 Stool Ordered Labs and/or images reviewed: Labs reviewed by me, Image(s) reviewed by me Assessment/Plan Assessment/Plan Acute epigastric pain Uncontrolled diabetes with a glucose of 390: Insulin sliding scale Acute lactic acidosis lactic acid 2.8 Sepsis with the elevated white count of 16: Flagyl Cipro Hypertension Diverticulosis without diverticulitis Epigastric pain: Check lipase Time spent 70 minutes Advanced care planning time 20 minutes Patient is full code Plan discussed with: Patient My Orders Orders - AGUSTIN HILTON MD Procedure Category Date Status Time Lipase LAB 11/20/24 Transmitted 13:50 Date of Service: Nov 20, 2024 Billing Provider: AGUSTIN HILTON MD Common Visit Codes: [id number] CARE 30-74 MIN AGUSTIN HILTON MD Nov 20, 2024 13:53
[2024-11-20 15:09] VITALS: BP 150/68; PULSE 62; RESP 20; TEMP 98.8; O2SAT 97
[2024-11-20] MEDS ORDERED: LOSA-534 PO (17:06)
[2024-11-20 17:23] VITALS: BP 121/64; PULSE 65; RESP 16; TEMP 98.5; O2SAT 96
[2024-11-20 20:00] VITALS: PULSE 65; PULSE 67; RESP 18; O2SAT 97
[2024-11-20 21:00] VITALS: BP 150/98; PULSE 67; RESP 18; TEMP 98.1; O2SAT 97
[2024-11-21] VITALS (8 sets, daily range): BP systolic 130–148; BP diastolic 67–88; PULSE 65–78; RESP 14–20; TEMP 97.1–98.6; O2SAT 94–96
--- NOTE | 2024-11-21 01:43 | DVHSR ---
APPROVED REPORT EXAM: Two-dimensional and M-mode echocardiogram with Doppler and color Doppler. Blood Pressure: 146/64 mmHg INDICATION Rule out structural heart disease RISK FACTORS Height: 4' 9", Weight: 120 DIMENSIONS LVDd4.3 (3.8-5.7cm)LA (2D)3.0 (1.9-4.0cm)Aortic Root2.9 (2.0-3.7cm) LVDs3.0 (2.5-4.0cm)LA (MM) (1.9-4.0cm)Aortic Cusp Exc1.7 (1.5-2.0cm) EF (%) 60.0 (55-70%)Rt. Atrium3.6 (1.9-4.0cm)Asc. Aorta cm IVSd1.0 (0.7-1.1cm)RV (D) (1.8-2.4cm) PWd0.9 (0.7-1.1cm) Mitral Valve MitralMitral Stenosis E wave0.70m/sMV Mean GR.mmHg A wave1.00m/sMV Peak GR.mmHg E/A ratio0.72D MVAcm2 Aortic Valve Aortic ValveAortic Stenosis V10.80m/Kendal Mean GR.3mmHg V21.10m/Kendal Peak GR.5mmHg LVOT Diameter2.0 (1.8-2.4cm)Doppler AVA2.28cm2 Pulmonic Valve V20.60m/s Conclusion MILD LVH AND MILD LV DIASTOLIC DYSFUNCTION LV EF IS 65% NORMAL VALVES NORMAL RV FUNCTION NO EFFUSION
--- NOTE | 2024-11-21 10:13 | DVHPN2 ---
Reviewed: Care Plan, H&P, Labs, Medications, Previous Orders, Radiology Changes from previous H/P or p: No Changes Eyes: No Pain, No Vision change, No Conjunctivae inflammation, No Eyelid inflammation, No Other, No Redness ENT: No Ear pain, No Ear discharge, No Nose pain, No Nose discharge, No Nose congestion, No Mouth pain, No Mouth swelling, No Throat pain, No Throat swelling, No Other Cardiovascular: No Chest Pain, No Palpitations, No Orthopnea, No Paroxysmal Noc. Dyspnea, No Edema, No Lt Headedness, No Other Respiratory: No Cough, No Dry, No Shortness of breath, No SOB with excertion, No Wheezing, No Hemoptysis, No Pleuritic Pain, No Sputum, No Other Gastrointestinal: No Nausea, No Vomiting; Abdominal Pain; No Diarrhea, No Constipation, No Melena, No Hematochezia, No Other Genitourinary: Dysuria, Frequency, Incontinence; No Hematuria, No Retention, No Other Musculoskeletal: No other, No neck pain, No shoulder pain, No arm pain, No back pain, No hand pain, No leg pain, No foot pain Skin: No Rash, No Lesions, No Jaundice, No Bruising, No Other Objective Vitals Vital Signs Date Time Temp Pulse Resp B/P (MAP) Pulse Ox O2 Delivery O2 Flow Rate FiO2 11/21/24 08:00 Room Air* 0 21 11/21/24 05:00 98.6 65 20 131/67 (88) 96 98.6 Intake/Output Intake and Output 11/21/24 07:00 Intake Total 1140 ml Balance 1140 ml Intake Oral 0 ml IV Total 1140 ml # Voids 14 Medications Current Medications Medications Dose Ordered Sig/Turner Route Start Time Stop Time Status Last Admin Dose Admin Sodium Chloride 1,000 ml @ 120 mls/hr Q8H20M IV 11/19/24 22:45 11/21/24 08:05 120 MLS/HR Ondansetron HCl 4 mg Q4HP PRN IV 11/19/24 22:45 Morphine Sulfate 2 mg Q4HPRN PRN IV 11/19/24 22:45 Nitroglycerin 0.4 mg Q5MINP PRN SL 11/19/24 22:45 Morphine Sulfate 2 mg Q30M PRN IV 11/19/24 22:45 Pantoprazole Sodium 40 mg DAILY IV 11/19/24 22:45 11/21/24 09:24 40 MG Cyclobenzaprine HCl 5 mg TIDPRN PRN PO 11/19/24 22:45 Ciprofloxacin 200 ml @ 200 mls/hr DAILY IV 11/20/24 06:00 11/20/24 10:25 200 MLS/HR Metronidazole 100 ml @ 100 mls/hr Q8HP IV 11/20/24 06:00 11/21/24 05:35 100 MLS/HR Diagnostic Test (Pha) 1 strip Q6HR 11/20/24 12:00 11/21/24 05:35 1 STRIP Insulin Human Regular Q6HR SC 11/20/24 12:00 11/21/24 05:35 4 UNITS Dextrose 50 ml UD PRN IV 11/20/24 08:15 Laboratory Results Laboratory Tests 11/20/24 05:19 Urinalysis Test 11/19/24 15:14 Urine Color Light-yellow (Yellow) Urine Clarity Clear (Clear) Urine pH 5.0 (5.0-9.0) Urine Specific [place] 1.030 (1.001-1.035) Urine Protein Trace (Negative) H Urine Ketones Trace (Negative) Urine Blood Negative /uL (Negative) Urine Nitrite Negative (Negative) Urine Bilirubin Negative (Negative) Urine Urobilinogen Normal mg/dL (Negative) Urine Leukocyte Esterase Trace /uL (Negative) Urine RBC 3 /hpf (0 - 4) Urine Microscopic WBC 30 /HPF (0-5) H Urine Squamous Epithelial Cells Few /hpf (<5) Urine Bacteria None seen /hpf (None Seen) Urine Yeast (Budding) Occasional /hpf (None Urine Glucose 4+ mg/dL (Normal) H Microbiology Microbiology Date/Time Source Procedure Growth Status 11/19/24 22:48 Stool Ordered 11/19/24 18:00 Blood Blood Culture - Preliminary NO GROWTH AFTER 24 HOURS OF INCUBATION. Resulted 11/19/24 15:14 Voided Urine Urine Culture - Preliminary Resulted Labs and/or images reviewed: Labs reviewed by me, Image(s) reviewed by me Assessment/Plan Assessment/Plan Acute epigastric pain Uncontrolled diabetes with glucose of 390: Insulin sliding scale Acute lactic acidosis lactic acid 2.8 Sepsis with the elevated white count of 16 possibly secondary to diverticulitis Hypertension Diverticulosis without diverticulitis: Continue Flagyl and Cipro Epigastric pain: Check lipase Time spent 50 minutes Advanced care planning time 20 minutes Patient is full code Lipase normal CT abdomen pelvis without contrast neg Plan discussed with: Patient Date of Service: Nov 21, 2024 Billing Provider: AGUSTIN HILTON MD Common Visit Codes: [id number] INP/OBS CARE(HIGH) AGUSTIN HILTON MD Nov 21, 2024 10:13
--- NOTE | 2024-11-21 23:13 | DVHINCON2 ---
Date of service: Nov 21, 2024 Referring Physician Clem Matt Reason for Consultation Epigastric pain History of Present Illness 74-year-old female came to the ER stating that she has been having epigastric pain which started 3 hours ago. She states that she we will having nausea vomiting for the past 3 hours yellow colored liquid. History of hypertension diabetes. States that she feels dizzy when walking. States that she has been well prior to this morning. Denies any other symptoms. Patient was seen at bedside. She continues to complain of epigastric pain. She described a burning in her throat because of recurrent nausea vomiting. She has not had a prior endoscopy or colonoscopy. Patient also complaints of constipation and has not had a bowel movement for a few days. She also has right flank pain that radiates to the suprapubic area. Patient was diagnosed with mild UTI and has been started on IV antibiotics. She had hyperglycemia and leukocytosis on admission which is resolving Past Medical History Diabetes and hypertension Past Surgical History Family History: Diabetes mellitus G8 MOTHER Parents Allergies: Coded Allergies: Penicillins (Verified Allergy, Severe, 08/10/18) Home Meds Active Scripts Nitrofurantoin Monohydrate Mac (Macrobid) 100 Mg Cap, 100 MG PO BID for 7 Days, #14 CAP Prov:AMALIA OROPEZA DO 09/17/24 Acetaminophen (Acetaminophen) 500 Mg Tab, 500 MG PO Q6HP PRN for 10 Days, #40 TAB 0 Refills Prov:CYNDEE COLON NP 09/06/24 Lidocaine (LIDODERM 5% TOPICAL PATCH) 1 Patch Ph, 1 PATCH TOP DAILY for 30 Days, #30 PATCH 0 Refills Prov:CYNDEE COLON NP 09/06/24 Acetaminophen (Tylenol Extra Strength) 500 Mg Tab, 1000 MG PO TID, #20 TAB Prov:XI AVERY MD 01/26/23 Cyclobenzaprine Hcl (CYCLOBENZAPRINE HCL) 7.5 Mg Tab, 7.5 MG PO TID, #14 TAB Prov:XI AVERY MD 01/26/23 Clonidine Hydrochloride (Clonidine Hcl) 0.1 Mg Tab, 1 TAB PO PRN, #20 TAB 0 Refills Prov:XI AVERY MD 01/26/23 Metoclopramide Hcl (Reglan) 10 Mg Tab, 10 MG PO TID, #14 TAB Prov:XI AVERY MD 01/26/23 Sulfamethoxazole W/Trimethopri (Bactrim Ds Tablet) 1 Tab Tb, 1 TAB PO BID for 7 Days, #14 TAB Prov:ELIE REDMAN PAC 09/28/22 Reported Medications Losartan Potassium (Losartan Potassium) 50 Mg Tab, 50 MG PO DAILY for 30 Days, MG 11/20/24 Vital Signs Vital Signs Date Time Temp Pulse Resp B/P (MAP) Pulse Ox O2 Delivery O2 Flow Rate FiO2 11/21/24 21:00 98.2 70 20 148/83 (104) 96 98.2 11/21/24 20:00 Room Air* 0 21 Physical Exam General Appearance: Alert, Oriented X3, Cooperative, mild distress HEENT: Atraumatic, PERRLA, EOMI, Mucous membr. moist/pink Respiratory: Clear to auscultation, Normal air movement Cardiovascular: Regular rate, Normal S1, Normal S2, No murmurs, Gallops Abdominal: Normal bowel sounds, Soft, Other (suprapubic and epigastric tenderness. ) Extremities: No clubbing, No cyanosis, No edema, Normal pulses, No tenderness/swelling Skin: No rashes, No breakdown, No significant lesion Neuro: Normal gait, Normal speech, Strength at 5/5 X4 ext, Normal tone, Sensation intact, Labs/Diagnostic Data Labs Test 11/21/24 17:42 11/20/24 05:19 11/19/24 23:09 11/19/24 15:28 Range/Units POC Glucose 170 H 70-106 mg/dl White Blood Count 9.4 # 4.4-10.8 10^3/uL Red Blood Count 4.52 4.0-5.20 10^6/uL Hemoglobin 13.6 12.2-16.2 g/dL Hematocrit 39.8 # 36.0-46.0 % Mean Corpuscular Volume 88.0 80.0-100.0 fL Mean Corpuscular Hemoglobin 30.1 28.0-32.0 pg Mean Corpuscular Hemoglobin Concent 34.2 32.0-36.0 g/dL Red Cell Distribution Width 13.8 11.8-14.3 % Platelet Count 207 140-450 10^3/uL Mean Platelet Volume 8.0 6.9-10.8 fL Neutrophils (%) (Auto) 59.6 37.0-80.0 % Lymphocytes (%) (Auto) 27.8 10.0-50.0 % Monocytes (%) (Auto) 9.3 0.0-12.0 % Eosinophils (%) (Auto) 2.9 0.0-7.0 % Basophils (%) (Auto) 0.4 0.0-2.0 % Neutrophils # (Auto) 5.6 1.6-8.6 10 ^3/uL Lymphocytes # (Auto) 2.6 0.4-5.4 10 ^3/uL Monocytes # (Auto) 0.9 0-1.3 10 ^3/uL Eosinophils # (Auto) 0.3 0-0.8 10 ^3/uL Basophils # (Auto) 0 0-0.2 10 ^3/uL Nucleated Red Blood Cells 0.0 % Sodium Level 143 # 136-145 mmol/L Potassium Level 3.8 3.5-5.1 mmol/L Chloride Level 109 H 98-107 mmol/L Carbon Dioxide Level 25 20-31 mmol/L Anion Gap 9 5-15 Blood Urea Nitrogen 11 9-23 mg/dL Creatinine 0.68 # 0.550-1.02 mg/dL Glomerular Filtration Rate Calc 92 >90 mL/min BUN/Creatinine Ratio 16.2 10.0-20.0 Serum Glucose 173 H 74-106 mg/dL Hemoglobin A1c 13.7 H <5.7 % A1C Lactic Acid Level 1.4 0.4-2.0 mmol/L Calcium Level 8.7 8.7-10.4 mg/dL Total Bilirubin 0.4 0.2-1.0 mg/dL Aspartate Amino Transferase (AST) 11 <34 U/L Alanine Aminotransferase (ALT) 19 7-40 U/L Alkaline Phosphatase 65 46-116 U/L Total Protein 6.4 5.7-8.2 g/dL Albumin 3.6 3.2-4.8 g/dL Lipase 27 12-53 U/L Prothrombin Time 10.9 9.3-11.8 sec Prothrombin Time INR 1.03 0.9-1.15 B-Type Natriuretic Peptide 34.43 0-100 pg/mL Direct Bilirubin 0.1 <0.3 mg/dL Test 11/19/24 15:14 Range/Units Urine Color Light-yellow Yellow Urine Clarity Clear Clear Urine pH 5.0 5.0-9.0 Urine Specific [place] 1.030 1.001-1.035 Urine Protein Trace H Negative Urine Ketones Trace Negative Urine Blood Negative Negative /uL Urine Nitrite Negative Negative Urine Bilirubin Negative Negative Urine Urobilinogen Normal Negative mg/dL Urine Leukocyte Esterase Trace Negative /uL Urine RBC 3 0 - 4 /hpf Urine Microscopic WBC 30 H 0-5 /HPF Urine Squamous Epithelial Cells Few <5 /hpf Urine Bacteria None seen None Seen /hpf Urine Yeast (Budding) Occasional None Seen /hpf Urine Glucose 4+ H Normal mg/dL Microbiology Date/Time Source Procedure Growth Status 11/19/24 22:48 Stool Ordered 11/19/24 18:00 Blood Blood Culture - Preliminary NO GROWTH AFTER 48 HOURS OF INCUBATION. Resulted 11/19/24 15:14 Voided Urine Urine Culture - Preliminary Resulted CT SCAN ABD PELVIS IMPRESSION: 1. Hepatomegaly with fatty infiltration. 2. Fecal retention in the colon consistent with constipation. 3. Colonic diverticulosis without acute diverticulitis. Problems(with codes): (1) Nausea & vomiting (2) Epigastric abdominal pain (3) UTI (urinary tract infection) (4) Uncontrolled diabetes mellitus (5) Gastroenteritis Plan/Recommendation Plan IV fluid hydration IV PPI and IV ABX Stool softeners Check urine culture, CEA, TSH Patient can be given a Dulcolax suppositories MiraLax 17 g p.o. daily NPO after midnight for EGD tomorrow Outpatient elective colonoscopy has been advised Plan discussed with: Patient, Son (Nurse), Other AGUEDA HAN MD Nov 21, 2024 23:13
[2024-11-22] VITALS (10 sets, daily range): BP systolic 134–172; BP diastolic 77–90; PULSE 62–97; RESP 15–20; TEMP 97–98.3; O2SAT 94–100
--- NOTE | 2024-11-22 11:28 | DVHPN2 ---
Reviewed: Care Plan, H&P, Labs, Medications, Previous Orders, Radiology Changes from previous H/P or p: No Changes Eyes: No Pain, No Vision change, No Conjunctivae inflammation, No Eyelid inflammation, No Other, No Redness ENT: No Ear pain, No Ear discharge, No Nose pain, No Nose discharge, No Nose congestion, No Mouth pain, No Mouth swelling, No Throat pain, No Throat swelling, No Other Cardiovascular: No Chest Pain, No Palpitations, No Orthopnea, No Paroxysmal Noc. Dyspnea, No Edema, No Lt Headedness, No Other Respiratory: No Cough, No Dry, No Shortness of breath, No SOB with excertion, No Wheezing, No Hemoptysis, No Pleuritic Pain, No Sputum, No Other Gastrointestinal: No Nausea, No Vomiting; Abdominal Pain; No Diarrhea, No Constipation, No Melena, No Hematochezia, No Other Genitourinary: Dysuria, Frequency, Incontinence; No Hematuria, No Retention, No Other Musculoskeletal: No other, No neck pain, No shoulder pain, No arm pain, No back pain, No hand pain, No leg pain, No foot pain Skin: No Rash, No Lesions, No Jaundice, No Bruising, No Other Objective Vitals Vital Signs Date Time Temp Pulse Resp B/P (MAP) Pulse Ox O2 Delivery O2 Flow Rate FiO2 11/22/24 09:00 97.0 72 18 141/77 (98) 96 97.0 11/21/24 20:00 Room Air* 0 21 Intake/Output Intake and Output 11/22/24 07:00 Intake Total 500 ml Balance 500 ml Intake Oral 0 ml IV Total 500 ml # Voids 7 Medications Current Medications Medications Dose Ordered Sig/Turner Route Start Time Stop Time Status Last Admin Dose Admin Sodium Chloride 1,000 ml @ 120 mls/hr Q8H20M IV 11/19/24 22:45 11/22/24 10:21 120 MLS/HR Ondansetron HCl 4 mg Q4HP PRN IV 11/19/24 22:45 Morphine Sulfate 2 mg Q4HPRN PRN IV 11/19/24 22:45 Nitroglycerin 0.4 mg Q5MINP PRN SL 11/19/24 22:45 Morphine Sulfate 2 mg Q30M PRN IV 11/19/24 22:45 Pantoprazole Sodium 40 mg DAILY IV 11/19/24 22:45 11/22/24 10:13 40 MG Cyclobenzaprine HCl 5 mg TIDPRN PRN PO 11/19/24 22:45 Ciprofloxacin 200 ml @ 200 mls/hr DAILY IV 11/20/24 06:00 11/22/24 10:13 200 MLS/HR Metronidazole 100 ml @ 100 mls/hr Q8HP IV 11/20/24 06:00 11/22/24 05:41 100 MLS/HR Diagnostic Test (Pha) 1 strip Q6HR 11/20/24 12:00 11/22/24 05:41 1 STRIP Insulin Human Regular Q6HR SC 11/20/24 12:00 11/22/24 05:41 3 UNITS Dextrose 50 ml UD PRN IV 11/20/24 08:15 Laboratory Results Laboratory Tests 11/20/24 05:19 Urinalysis Test 11/19/24 15:14 Urine Color Light-yellow (Yellow) Urine Clarity Clear (Clear) Urine pH 5.0 (5.0-9.0) Urine Specific [place] 1.030 (1.001-1.035) Urine Protein Trace (Negative) H Urine Ketones Trace (Negative) Urine Blood Negative /uL (Negative) Urine Nitrite Negative (Negative) Urine Bilirubin Negative (Negative) Urine Urobilinogen Normal mg/dL (Negative) Urine Leukocyte Esterase Trace /uL (Negative) Urine RBC 3 /hpf (0 - 4) Urine Microscopic WBC 30 /HPF (0-5) H Urine Squamous Epithelial Cells Few /hpf (<5) Urine Bacteria None seen /hpf (None Seen) Urine Yeast (Budding) Occasional /hpf (None Urine Glucose 4+ mg/dL (Normal) H Microbiology Microbiology Date/Time Source Procedure Growth Status 11/19/24 18:00 Blood Blood Culture - Preliminary NO GROWTH AFTER 48 HOURS OF INCUBATION. Resulted 11/19/24 15:14 Voided Urine Urine Culture - Preliminary Resulted Labs and/or images reviewed: Labs reviewed by me, Image(s) reviewed by me Assessment/Plan Assessment/Plan Acute epigastric pain Uncontrolled diabetes with glucose of 390: Insulin sliding scale Acute lactic acidosis lactic acid 2.8 Sepsis with the elevated white count of 16 possibly secondary to diverticulitis Hypertension UTI: Cipro, blood cultures negative urine cultures mixed Diverticulosis without diverticulitis: Continue Flagyl and Cipro Epigastric pain: Lipase normal, TSH pending, CEA pending, GI Dr. Keo Varela planning for EGD today Time spent 50 minutes Advanced care planning time 20 minutes Patient is full code Lipase normal CT abdomen pelvis without contrast neg Plan discussed with: Patient Date of Service: Nov 22, 2024 Billing Provider: AGUSTIN HILTON MD Common Visit Codes: [id number] INP/OBS CARE(HIGH) AGUSTIN HILTON MD Nov 22, 2024 11:28
--- NOTE | 2024-11-22 11:40 | DVH ---
CHEST RADIOGRAPH Indication: pre-op , pain Technique: Single frontal view of the chest was obtained Comparison: None FINDINGS: Lines and Tubes: None Lungs: No focal consolidation. Pleura: No effusion. No pneumothorax. Cardiomediastinal contours: Unremarkable Bones: No acute osseous abnormality. IMPRESSION: No acute cardiopulmonary disease.
[2024-11-22] MEDS: LIDOCAINE VISCOUS 2% 15ML UD ONE (15:34)
[2024-11-22] MEDS: diphenhdrAMINE HCL 50 MG/1 ML VL ONE (15:35)
[2024-11-22] MEDS: fentaNYL CITRATE 100 MCG/2 ML VL ONE (15:35)
[2024-11-22] MEDS: MIDAZOLAM HCL 5 MG/ML-1ML VIAL ONE (15:35)
--- NOTE | 2024-11-22 16:13 | DVHOP2 ---
Operative Report DATE OF OPERATION: 11/22/24 PROCEDURE: Upper Endoscopy with biopsy. PREOPERATIVE INDICATION: The patient is a 74 -year-old female undergoing endoscopy for epigastric pain and dyspepsia POSTOPERATIVE DIAGNOSES: 1. 0.5 cm sliding-type hiatal hernia with slightly irregular squamocolumnar junction minimal grade a erosive esophagitis 2. Moderate to severe gastritis with hyperemia erythema and mucosal edema 3. Minimal duodenitis of the duodenal bulb otherwise normal examination up to the 2nd and 3rd part of the duodenum PROCEDURE PERFORMED BY: Agueda Varela GI NURSE: Darshana SCOPE: Olympus videoendoscope. ASA CLASS: 3. PREOPERATIVE MEDICATIONS: Versed 2 mg, Fentanyl 50 mcg, Benadryl 50 mg I administered moderate sedation throughout this _8_ minutes procedure. An independent trained observer pushed medications at my direction, and monitored the patient's level of consciousness and physiological status throughout. PROCEDURE IN DETAIL: After obtaining an informed consent, the patient was placed on left lateral decubitus position. The patient was then sedated with the above medications. A bite block was placed between her teeth. The endoscope was then passed through the oropharynx, into the esophagus, and through the stomach and pylorus up to the second and third part of the duodenum. The endoscope was then withdrawn. The 2nd and 3rd part of the duodenum were normal. Duodenal bulb showed mild duodenitis. Duodenal biopsies were obtained. The pre-pyloric area antrum and body of the stomach showed [id number] ga stritis with hyperemia erythema mucosal edema from which biopsies were obtained On retroflexion the fundus and cardia were normal again gastritis was noted in the proximal stomach. Gastric biopsies were obtained. The endoscope was then withdrawn into distal esophagus where there was slightly irregular squamocolumnar junction minimal grade a erosive esophagitis GE junction biopsies were obtained. The remaining distal and proximal esophagus and oropharynx were unremarkable The patient tolerated the procedure well without difficulty. COMPLICATIONS : None SPECIMENS: Duodenal biopsies Gastric biopsies Junction biopsies DISPOSITION: Transfer back to the floor Stable PLAN: 1. Await for biopsy result 2. Will place pt on Protonix 40 mg bid 3. Carafate suspension 1 g p.o. 4 times a day 4. Advance diet as tolerated 5. Patient will need outpatient follow up with GI Services for elective colonoscopy AGUEDA VARELA MD Nov 22, 2024 16:13
[2024-11-22] MEDS: SUCRALFATE 1 GM/10 ML ORAL SUSP PO SCH (17:01)
[2024-11-22] MEDS: hydrALAZINE HCL 20 MG/ML VL IV PRN (21:07)
[2024-11-23 01:00] VITALS: BP 153/87; PULSE 67; RESP 18; TEMP 98; O2SAT 96
[2024-11-23 05:00] VITALS: BP 106/71; PULSE 68; RESP 17; TEMP 98.2; O2SAT 96
[2024-11-23 07:56] VITALS: PULSE 70; RESP 16; O2SAT 97
[2024-11-23 08:00] VITALS: PULSE 66
[2024-11-23 09:00] VITALS: BP 146/80; PULSE 70; RESP 16; TEMP 98.9; O2SAT 97
--- NOTE | 2024-11-23 09:41 | DVHPN2 ---
Reviewed: Care Plan, H&P, Labs, Medications, Previous Orders, Radiology Changes from previous H/P or p: No Changes Eyes: No Pain, No Vision change, No Conjunctivae inflammation, No Eyelid inflammation, No Other, No Redness ENT: No Ear pain, No Ear discharge, No Nose pain, No Nose discharge, No Nose congestion, No Mouth pain, No Mouth swelling, No Throat pain, No Throat swelling, No Other Cardiovascular: No Chest Pain, No Palpitations, No Orthopnea, No Paroxysmal Noc. Dyspnea, No Edema, No Lt Headedness, No Other Respiratory: No Cough, No Dry, No Shortness of breath, No SOB with excertion, No Wheezing, No Hemoptysis, No Pleuritic Pain, No Sputum, No Other Gastrointestinal: No Nausea, No Vomiting; Abdominal Pain; No Diarrhea, No Constipation, No Melena, No Hematochezia, No Other Genitourinary: Dysuria, Frequency, Incontinence; No Hematuria, No Retention, No Other Musculoskeletal: No other, No neck pain, No shoulder pain, No arm pain, No back pain, No hand pain, No leg pain, No foot pain Skin: No Rash, No Lesions, No Jaundice, No Bruising, No Other Objective Vitals Vital Signs Date Time Temp Pulse Resp B/P (MAP) Pulse Ox O2 Delivery O2 Flow Rate FiO2 11/23/24 08:00 66 11/23/24 07:56 16 97 Room Air* 0 21 11/23/24 05:00 98.2 106/71 (83) 98.2 Intake/Output Intake and Output 11/23/24 07:00 Intake Total 3850 ml Balance 3850 ml Intake Oral 850 ml IV Total 3000 ml # Voids 5 # Bowel Movements 2 Medications Current Medications Medications Dose Ordered Sig/Turner Route Start Time Stop Time Status Last Admin Dose Admin Sodium Chloride 1,000 ml @ 120 mls/hr Q8H20M IV 11/19/24 22:45 11/23/24 01:49 120 MLS/HR Ondansetron HCl 4 mg Q4HP PRN IV 11/19/24 22:45 Morphine Sulfate 2 mg Q4HPRN PRN IV 11/19/24 22:45 Nitroglycerin 0.4 mg Q5MINP PRN SL 11/19/24 22:45 Morphine Sulfate 2 mg Q30M PRN IV 11/19/24 22:45 Pantoprazole Sodium 40 mg DAILY IV 11/19/24 22:45 11/23/24 08:29 40 MG Cyclobenzaprine HCl 5 mg TIDPRN PRN PO 11/19/24 22:45 Ciprofloxacin 200 ml @ 200 mls/hr DAILY IV 11/20/24 06:00 11/23/24 08:29 200 MLS/HR Metronidazole 100 ml @ 100 mls/hr Q8HP IV 11/20/24 06:00 11/23/24 05:37 100 MLS/HR Diagnostic Test (Pha) 1 strip Q6HR 11/20/24 12:00 11/23/24 05:38 1 STRIP Insulin Human Regular Q6HR SC 11/20/24 12:00 11/23/24 05:57 3 UNITS Dextrose 50 ml UD PRN IV 11/20/24 08:15 Sucralfate 1 gm QID@0600,1130,1700,2200 PO 11/22/24 17:00 11/23/24 05:37 1 GM Hydralazine HCl 10 mg Q6HP PRN IV 11/22/24 21:00 11/22/24 21:07 10 MG Laboratory Results Laboratory Tests 11/20/24 05:19 HgA1c, TSH Test 11/22/24 11:30 Thyroid Stimulating Hormone (TSH) 0.88 uIU/mL (0.55-4.78) Urinalysis Test 11/19/24 15:14 Urine Color Light-yellow (Yellow) Urine Clarity Clear (Clear) Urine pH 5.0 (5.0-9.0) Urine Specific [place] 1.030 (1.001-1.035) Urine Protein Trace (Negative) H Urine Ketones Trace (Negative) Urine Blood Negative /uL (Negative) Urine Nitrite Negative (Negative) Urine Bilirubin Negative (Negative) Urine Urobilinogen Normal mg/dL (Negative) Urine Leukocyte Esterase Trace /uL (Negative) Urine RBC 3 /hpf (0 - 4) Urine Microscopic WBC 30 /HPF (0-5) H Urine Squamous Epithelial Cells Few /hpf (<5) Urine Bacteria None seen /hpf (None Seen) Urine Yeast (Budding) Occasional /hpf (None Urine Glucose 4+ mg/dL (Normal) H Microbiology Microbiology Date/Time Source Procedure Growth Status 11/19/24 18:00 Blood Blood Culture - Preliminary NO GROWTH AFTER 72 HOURS OF INCUBATION. Resulted 11/19/24 15:14 Voided Urine Urine Culture - Final Complete Labs and/or images reviewed: Labs reviewed by me, Image(s) reviewed by me Assessment/Plan Assessment/Plan Acute epigastric pain Uncontrolled diabetes with glucose of 390: Insulin sliding scale Acute lactic acidosis lactic acid 2.8 Sepsis with the elevated white count of 16 possibly secondary to diverticulitis Hypertension UTI: Cipro, blood cultures negative urine cultures mixed Diverticulosis without diverticulitis: Continue Flagyl and Cipro Epigastric pain: Lipase normal, TSH normal, CEA negative Moderate to severe gastritis by EGD by Dr. Keo Varela CT abdomen pelvis without contrast neg Time spent 50 minutes Plan discussed with: Patient Date of Service: Nov 23, 2024 Billing Provider: AGUSTIN HILTON MD Common Visit Codes: [id number] INP/OBS CARE(HIGH) AGUSTIN HILTON MD Nov 23, 2024 09:41
--- NOTE | 2024-11-23 10:08 | DVHDS2 ---
Discharge Summary Date of Admission Nov 19, 2024 at 22:31 Date of Discharge: Nov 23, 2024 Admitting Diagnosis Abdominal pain nausea and vomiting Wounds: EGD Labs/Diagnostic Data: Laboratory Results Test 11/23/24 05:53 11/22/24 22:10 11/22/24 11:30 11/20/24 05:19 POC Glucose 187 mg/dl (70-106) Stool Occult Blood Negative (Negative) Stool Occult Blood Sample #3 (Negative) Stool for White Cells None seen Carcinoembryonic Antigen 1.32 ng/mL (<=5.0) Thyroid Stimulating Hormone (TSH) 0.88 uIU/mL (0.55-4.78) White Blood Count 9.4 10^3/uL (4.4-10.8) Red Blood Count 4.52 10^6/uL (4.0-5.20) Hemoglobin 13.6 g/dL (12.2-16.2) Hematocrit 39.8 % (36.0-46.0) Mean Corpuscular Volume 88.0 fL (80.0-100.0) Mean Corpuscular Hemoglobin 30.1 pg (28.0-32.0) Mean Corpuscular Hemoglobin Concent 34.2 g/dL (32.0-36.0) Red Cell Distribution Width 13.8 % (11.8-14.3) Platelet Count 207 10^3/uL (140-450) Mean Platelet Volume 8.0 fL (6.9-10.8) Neutrophils (%) (Auto) 59.6 % (37.0-80.0) Lymphocytes (%) (Auto) 27.8 % (10.0-50.0) Monocytes (%) (Auto) 9.3 % (0.0-12.0) Eosinophils (%) (Auto) 2.9 % (0.0-7.0) Basophils (%) (Auto) 0.4 % (0.0-2.0) Neutrophils # (Auto) 5.6 10 ^3/uL (1.6-8.6) Lymphocytes # (Auto) 2.6 10 ^3/uL (0.4-5.4) Monocytes # (Auto) 0.9 10 ^3/uL (0-1.3) Eosinophils # (Auto) 0.3 10 ^3/uL (0-0.8) Basophils # (Auto) 0 10 ^3/uL (0-0.2) Nucleated Red Blood Cells 0.0 % Sodium Level 143 mmol/L (136-145) Potassium Level 3.8 mmol/L (3.5-5.1) Chloride Level 109 mmol/L (98-107) Carbon Dioxide Level 25 mmol/L (20-31) Anion Gap 9 (5-15) Blood Urea Nitrogen 11 mg/dL (9-23) Creatinine 0.68 mg/dL (0.550-1.02) Glomerular Filtration Rate Calc 92 mL/min (>90) BUN/Creatinine Ratio 16.2 (10.0-20.0) Serum Glucose 173 mg/dL (74-106) Hemoglobin A1c 13.7 % A1C (<5.7) Lactic Acid Level 1.4 mmol/L (0.4-2.0) Calcium Level 8.7 mg/dL (8.7-10.4) Total Bilirubin 0.4 mg/dL (0.2-1.0) Aspartate Amino Transferase (AST) 11 U/L (<34) Alanine Aminotransferase (ALT) 19 U/L (7-40) Alkaline Phosphatase 65 U/L (46-116) Total Protein 6.4 g/dL (5.7-8.2) Albumin 3.6 g/dL (3.2-4.8) Lipase 27 U/L (12-53) Test 11/19/24 23:09 11/19/24 15:28 11/19/24 15:14 Prothrombin Time 10.9 sec (9.3-11.8) Prothrombin Time INR 1.03 (0.9-1.15) B-Type Natriuretic Peptide 34.43 pg/mL (0-100) Direct Bilirubin 0.1 mg/dL (<0.3) Urine Color Light-yellow (Yellow) Urine Clarity Clear (Clear) Urine pH 5.0 (5.0-9.0) Urine Specific [place] 1.030 (1.001-1.035) Urine Protein Trace (Negative) Urine Ketones Trace (Negative) Urine Blood Negative /uL (Negative) Urine Nitrite Negative (Negative) Urine Bilirubin Negative (Negative) Urine Urobilinogen Normal mg/dL (Negative) Urine Leukocyte Esterase Trace /uL (Negative) Urine RBC 3 /hpf (0 - 4) Urine Microscopic WBC 30 /HPF (0-5) Urine Squamous Epithelial Cells Few /hpf (<5) Urine Bacteria None seen /hpf (None Seen) Urine Yeast (Budding) Occasional /hpf (None Urine Glucose 4+ mg/dL (Normal) Other Laboratory Tests 11/20/24 05:19 Brief Hx & Hospital Course: 74-year-old female with a history of diabetes hypotension came in complaining of epigastric pain nausea and vomiting found to have uncontrolled diabetes glucose of 390 treated with the insulin sliding scale acute lactic acidosis resolved patient probably had sepsis with the elevated white count of 16 secondary to possible diverticulitis placed on Cipro and Flagyl GI consult by Dr. Keo Varela EGD shows moderate to severe gastritis placed on pantoprazole and Carafate lipase normal TSH normal CEA negative patient feels better and wants to go home. Discharged home on Levaquin Flagyl pantoprazole Carafate. She will follow up with the primary Dr and Dr. Keo Varela Consults/Reason for consult GI Dr. Keo Varela Operations or Procedures CT abdomen pelvis without contrast EGD Condition at Discharge: Fair Final Diagnosis/Problems List Acute epigastric pain Uncontrolled diabetes with glucose of 390: Insulin sliding scale Acute lactic acidosis lactic acid 2.8 Sepsis with the elevated white count of 16 possibly secondary to diverticulitis Hypertension UTI: Cipro, blood cultures negative urine cultures mixed Diverticulosis without diverticulitis: Continue Flagyl and Cipro Epigastric pain: Lipase normal, TSH normal, CEA negative Moderate to severe gastritis by EGD by Dr. Keo Varela CT abdomen pelvis without contrast neg Discharge Disposition: Home Discharge Instruct/Medications Diet: Regular Activity: Light activity Follow Up/Referral: Follow up with your primary Dr Follow up with the GI Dr. Keo Varela in two weeks Medications: Pantoprazole Carafate Levaquin Flagyl Transmitted to [facility] pharmacy Scheduled Acetaminophen (Tylenol Extra Strength), 1,000 MG PO TID Clonidine Hydrochloride (Clonidine Hcl), 1 TAB PO PRN Cyclobenzaprine Hcl (Cyclobenzaprine Hcl), 7.5 MG PO TID Lidocaine (Lidoderm 5% Topical Patch), 1 PATCH TOP DAILY Losartan Potassium (Losartan Potassium), 50 MG PO DAILY, (Reported) Metoclopramide Hcl (Reglan), 10 MG PO TID Nitrofurantoin Monohydrate Mac (Macrobid), 100 MG PO BID Sulfamethoxazole W/Trimethopri (Bactrim Ds Tablet), 1 TAB PO BID Scheduled PRN Acetaminophen (Acetaminophen), 500 MG PO Q6HP PRN Discharge Statement: "Patient was advised to return to the ER or call 911 if any headaches, dizziness, shortness of breath, chest pain, abdominal pain, bleeding, fevers, or worsening of medical condition. Patient was counseled about treatment plan, medications, possible side effects, patientverbalized understanding. All questions were answered to the best of my ability. This discharge took greater then 30 minutes in planning, reviewing documentation, counseling the patient, and discussing with other team members." ASSESSMENT ASSESSMENT Hospital Course Uneventful Assessment Acute epigastric pain Uncontrolled diabetes with glucose of 390: Insulin sliding scale Acute lactic acidosis lactic acid 2.8 Sepsis with the elevated white count of 16 possibly secondary to diverticulitis Hypertension UTI: Cipro, blood cultures negative urine cultures mixed Diverticulosis without diverticulitis: Continue Flagyl and Cipro Epigastric pain: Lipase normal, TSH normal, CEA negative Moderate to severe gastritis by EGD by Dr. Keo Varela CT abdomen pelvis without contrast neg Date of Service: Nov 23, 2024 Billing Provider: AGUSTIN HILTON MD Common Visit Codes: [id number] INP/OBS CARE(HIGH) AGUSTIN HILTON MD Nov 23, 2024 10:08
[2024-11-23] MEDS ORDERED: LEVO500T91 PO (10:10)
[2024-11-23] MEDS ORDERED: PANT40T PO (10:10)
[2024-11-23] MEDS ORDERED: SUCR1TAB31 PO (10:10)
[2024-11-23] MEDS ORDERED: MET500T PO (10:10)
[2024-11-23 10:17] VITALS: BP 146/80; PULSE 70; RESP 16; TEMP 98.9; O2SAT 97
--- NOTE | 2024-11-23 14:20 | DVHPN2 ---
Progress Note - Dictate Date Seen: Nov 23, 2024 (Late entry time of visit was 11:00 a.m.) Medical Necessity Reason Pt with a Central, PICC or Fol: No Subjective No new complaints Feeling better EGD showed [id number] gastritis vital signs Vital Sign Date Time Temp Pulse Resp B/P (MAP) Pulse Ox O2 Delivery O2 Flow Rate FiO2 11/23/24 10:17 98.9 70 16 97 11/23/24 09:00 146/80 (102) 11/23/24 07:56 Room Air* 0 21 Total Intake and Output 11/22/24 11/22/24 11/23/24 15:00 23:00 07:00 Intake Total 1200 ml 700 ml 1950 ml Balance 1200 ml 700 ml 1950 ml objective General Appearance: Alert, Oriented X3, Cooperative, no distress HEENT: Atraumatic, PERRLA, EOMI, Mucous membr. moist/pink Respiratory: Clear to auscultation, Normal air movement Cardiovascular: Regular rate, Normal S1, Normal S2, No murmurs, Gallops Abdominal: Normal bowel sounds, Soft, Other (suprapubic and epigastric tenderness. ) Extremities: No clubbing, No cyanosis, No edema, Normal pulses, No tenderness/swelling Skin: No rashes, No breakdown, No significant lesion Neuro: Normal gait, Normal speech, Strength at 5/5 X4 ext, Normal tone, Sensation intact, laboratory and microbiology Laboratory Tests 11/20/24 05:19 Test 11/20/24 05:19 Range/Units Serum Glucose 173 H 74-106 mg/dL Problems(with codes): (1) Gastritis (2) Nausea & vomiting (3) Epigastric abdominal pain (4) Gastroenteritis Prognosis Plan Discharge planning is in progress Protonix 40 mg p.o. daily Carafate 1 g p.o. twice a day Outpatient follow up with me in 2-4 weeks to review results biopsy results and discuss further management Dietary Evaluation Review Comments: 1) If patient remains NPO > 7 days, consider EN/TPN to meet at least 75% of estimated needs 2) Advance to 60g CCHO cardiac diet when medically feasible 3) Refer to outpatient RD/CDCES for diabetes education 4) Follow-up with gastroenterology and cardiology 4) Continue to monitor I&O, labs, and skin integrity Expected Outcomes/Goals: 1) patient to receive nutrition support within 7 days of NPO status 2) GI symptoms and labs to improve 3) diet to advance 4) f/u in 2-3 days Plan discussed with: Patient AGUEDA HAN MD Nov 23, 2024 14:20
== END 2024-11-23 11:28 | disposition home or self-care (01) | DRG 871 ==
LOC: ER 14:57 → OVERFLOW 22:31 → TELE-EAST 11-20 14:28
PROVIDERS: ADMIT Family Medicine; ATTEND Family Medicine
PROC: 0DB68ZX Excision of Stomach, Via Natural or Artificial Opening Endoscopic, Diagnostic (ICD-10-PCS; 2024-11-22)
PROC: 0DB48ZX Excision of Esophagogastric Junction, Via Natural or Artificial Opening Endoscopic, Diagnostic (ICD-10-PCS; 2024-11-22)
PROC: 0DB98ZX Excision of Duodenum, Via Natural or Artificial Opening Endoscopic, Diagnostic (ICD-10-PCS; principal; 2024-11-22 15:15)
DX: A41.9 Sepsis, unspecified organism (principal); N17.0 Acute kidney failure with tubular necrosis; E87.21 Acute metabolic acidosis; N18.4 Chronic kidney disease, stage 4 (severe); N39.0 Urinary tract infection, site not specified; K22.10 Ulcer of esophagus without bleeding; K57.32 Diverticulitis of large intestine without perforation or abscess without bleeding; A09 Infectious gastroenteritis and colitis, unspecified; K57.30 Diverticulosis of large intestine without perforation or abscess without bleeding; K29.80 Duodenitis without bleeding; K29.70 Gastritis, unspecified, without bleeding; K59.09 Other constipation; I12.9 Hypertensive chronic kidney disease with stage 1 through stage 4 chronic kidney disease, or unspecified chronic kidney disease; G89.29 Other chronic pain; K44.9 Diaphragmatic hernia without obstruction or gangrene; E11.22 Type 2 diabetes mellitus with diabetic chronic kidney disease; Z88.0 Allergy status to penicillin; Z79.899 Other long term (current) drug therapy; Z83.3 Family history of diabetes mellitus
CPT/HCPCS: 36415; 43239; 71045; 74176; 80048; 80053; 80076; 81001; 82270; 82378; 82962; 83036; 83605; 83690; 83880; 84443; 85025; 85048; 85610; 86850; 86900; 86901; 87040; 87086; 87177; 93306; 96374; 96375; G0378; J1815; J1956; J2250; J2470; J3490